=== PATIENT | male | born 1950 | race Caucasian/White ===

== ENCOUNTER → 2016-09-26 | Outpatient (CLI) | payer MEDICARE ==
[2016-09-26 08:14] LABS: EKG EKG PERFORMED
[2016-09-26 09:07] LABS: CH 32.1; CHCM 34.2; HCT 48.4 % (39.0-53.0); HDW 2.31; MCH 31.2 pg (25.0-35.0); MCV 94.5 fL (80.0-100.0); Mean Platelet Volume 7.5; RBC 5.13 m/uL (4.30-5.90); RDW 13.1 % (11.5-15.5); WBC 7.3 k/uL (3.8-10.6)
[2016-09-26 09:25] LABS: ALT 27 U/L (21-72); AST 22 U/L (17-59); Alkaline Phosphatase 83 U/L (38-126); Anion Gap 12 mmol/L; Blood Urea Nitrogen 23 mg/dL (9-20); Calcium 9.4 mg/dL (8.4-10.2); Carbon Dioxide 22 mmol/L (22-30); Chloride 107 mmol/L (98-107); Cholesterol 226 mg/dL (<200); Glucose 120 mg/dL (74-99); HDL Cholesterol 45 mg/dL (40-60); Non-African American GFR(MDRD) >60 (>60 ml/min/1.73 sqM); Potassium 4.4 mmol/L (3.5-5.1); Sodium 141 mmol/L (137-145); Total Bilirubin 0.7 mg/dL (0.2-1.3); Total Protein 7.5 g/dL (6.3-8.2); Triglycerides 162 mg/dL (<150)
[2016-09-26 09:28] LABS: Appearance,Urine Clear (Clear); Bilirubin,Urine Negative (Negative); Glucose,Urine (UA) Negative (Negative); Ketones,Urine Negative (Negative); Leukocyte Esterase,Urine Negative (Negative); Nitrite,Urine Negative (Negative); Protein,Urine Negative (Negative); Specific Gravity,Urine 1.009 (1.001-1.035); UA Billing (MACRO vs. MICRO) CHEM; Urobilinogen,Urine <2.0 mg/dL (<2.0)
--- NOTE | 2016-09-26 15:28 | XR ---
EXAMINATION TYPE: XR chest 2V DATE OF EXAM: 09/26/2016 HISTORY: Z00.00 Wellness check. REFERENCE: NONE. FINDINGS: The lungs are clear. Pleural spaces are clear. Heart size is upper limits of normal. There is evidence of hypertrophic spondylosis within the spine. IMPRESSION: BORDERLINE CARDIOMEGALY.
== END | disposition home or self-care (01) ==
LOC: LABWHC1 08:04
PROVIDERS: ATTEND Internal Medicine
DX: Z00.00 Encounter for general adult medical examination without abnormal findings (principal); I11.9 Hypertensive heart disease without heart failure; E66.1 Drug-induced obesity; N40.1 Benign prostatic hyperplasia with lower urinary tract symptoms; K21.0 Gastro-esophageal reflux disease with esophagitis
CPT/HCPCS: 36415; 71020; 80053; 80061; 81003; 82272; 84439; 84443; 85027; 93005

== ENCOUNTER → 2016-10-24 | Outpatient (CLI) | payer MEDICARE ==
[2016-10-24 11:52] LABS: Hemoglobin A1C 6.1 % (4.2-6.1)
== END | disposition home or self-care (01) ==
LOC: LABWHC1 07:27
PROVIDERS: ATTEND Internal Medicine
DX: N40.0 Benign prostatic hyperplasia without lower urinary tract symptoms (principal); R73.9 Hyperglycemia, unspecified
CPT/HCPCS: 36415; 83036; 84153

== ENCOUNTER 2017-09-05 08:24 | Inpatient (IN) | payer MEDICARE, OTHER ==
[2017-09-05] MEDS ORDERED: RX INFO: IV CONTRAST WAS GIVEN 1 EACH MISC MISCELLANE PRN (09:23)
--- NOTE | 2017-09-05 09:28 | ED ---
General Adult HPI - General Chief complaint: Abdominal Pain Stated complaint: Abd Pain Time Seen by Provider: 09/05/17 08:43 Source: patient, RN notes reviewed, old records reviewed Mode of arrival: wheelchair Limitations: no limitations - History of Present Illness Initial comments: 66-year-old male history of hypertension presents with abdominal pain which began approximately 2 hours prior to arrival. Pain began suddenly while patient was having a bowel movement. Describes the pain is from his right upper abdomen to his right groin. He does have some mild back pain.. He has nausea with no significant vomiting. No diarrhea. No rectal bleeding. Patient had only a small bowel movement with this episode. Denies chest pain or difficulty breathing. Denies fever or chills. Denies flank pain, hematuria or dysuria. - Related Data Home Medications Medication Instructions Recorded Confirmed No Known Home Medications [No 09/05/17 09/05/17 Known Home Medications] Allergies Allergy/AdvReac Type Severity Reaction Status Date / Time diphenhydramine AdvReac SUICIDAL Verified 09/05/17 09:56 [From Lio] Review of Systems ROS Statement: Those systems with pertinent positive or pertinent negative responses have been documented in the HPI. ROS Other: All systems not noted in ROS Statement are negative. Past Medical History Past Medical History: Hypertension Additional Past Medical History / Comment(s): kidney stones History of Any Multi-Drug Resistant Organisms: None Reported Past Surgical History: Appendectomy Additional Past Surgical History / Comment(s): cataract removal Past Psychological History: No Psychological Hx Reported Smoking Status: Never smoker Past Alcohol Use History: None Reported Past Drug Use History: None Reported General Exam Limitations: no limitations General appearance: alert, in distress Head exam: Present: atraumatic, normocephalic Eye exam: Present: normal appearance, PERRL ENT exam: Present: normal exam Neck exam: Present: normal inspection. Absent: tenderness, meningismus Respiratory exam: Present: normal lung sounds bilaterally. Absent: respiratory distress Cardiovascular Exam: Present: regular rate, normal rhythm GI/Abdominal exam: Present: distended, tenderness, guarding Extremities exam: Present: normal inspection, normal capillary refill, other ( Distal pulses intact) Back exam: Present: normal inspection Neurological exam: Present: alert, oriented X3, CN II-XII intact. Absent: motor sensory deficit Psychiatric exam: Present: normal affect, normal mood Skin exam: Present: warm, diaphoretic Course Vital Signs 09/05/17 09/05/17 09/05/17 08:31 10:06 11:25 Temperature 97.8 F Pulse Rate 85 83 77 Respiratory 20 22 20 Rate Blood Pressure 184/99 156/87 O2 Sat by Pulse 100 97 94 L Oximetry EKG Findings - EKG Comments: EKG Findings:: EKG: Sinus rhythm with occasional PVC, rate of 78, WV interval 172, QRS duration 78, QTC 456, no definitive signs of ischemia. Medical Decision Making - Medical Decision Making 66-year-old male presenting with abdominal pain and nausea vomiting. Patient is tender on exam throughout his abdomen. No rebound or guarding. CBC and CMP are unremarkable. Urinalysis is pending. CT is obtained, does show ventral hernia, there is slow passage of intestinal material. No definitive small bowel. Patient is unable to pass gas or have a bowel movement in the emergency department. He has ongoing pain. I believe this is likely an early small bowel obstruction or partial small bowel obstruction. He will be admitted for further monitoring, and pain control. - Lab Data Result diagrams: 09/05/17 09:05 09/05/17 09:05 Lab Results 09/05/17 09/05/17 09/05/17 Range/Units 09:05 09:05 09:05 WBC 6.3 (3.8-10.6) k/uL RBC 4.99 (4.30-5.90) m/uL Hgb 15.7 (13.0-17.5) gm/dL Hct 47.1 (39.0-53.0) % MCV 94.3 (80.0-100.0) fL MCH 31.4 (25.0-35.0) pg MCHC 33.3 (31.0-37.0) g/dL RDW 13.6 (11.5-15.5) % Plt Count 222 (150-450) k/uL Neutrophils % 63 % Lymphocytes % 26 % Monocytes % 5 % Eosinophils % 3 % Basophils % 1 % Neutrophils # 4.0 (1.3-7.7) k/uL Lymphocytes # 1.7 (1.0-4.8) k/uL Monocytes # 0.3 (0-1.0) k/uL Eosinophils # 0.2 (0-0.7) k/uL Basophils # 0.1 (0-0.2) k/uL PT (9.0-12.0) sec INR (<1.2) APTT (22.0-30.0) sec Sodium 143 (137-145) mmol/L Potassium 4.9 (3.5-5.1) mmol/L Chloride 105 (98-107) mmol/L Carbon Dioxide 25 (22-30) mmol/L Anion Gap 13 mmol/L BUN 17 (9-20) mg/dL Creatinine 0.80 (0.66-1.25) mg/dL Est GFR (CKD-EPI)AfAm >90 (>60 ml/min/1.73 sqM) Est GFR (CKD-EPI)NonAf >90 (>60 ml/min/1.73 sqM) Glucose 134 H (74-99) mg/dL Plasma Lactic Acid Royal 1.6 (0.7-2.0) mmol/L Calcium 9.5 (8.4-10.2) mg/dL Total Bilirubin 0.6 (0.2-1.3) mg/dL AST 31 (17-59) U/L ALT 28 (21-72) U/L Alkaline Phosphatase 72 (38-126) U/L Total Protein 7.4 (6.3-8.2) g/dL Albumin 4.2 (3.5-5.0) g/dL Amylase 42 (30-110) U/L Lipase 43 (23-300) U/L / Range/Units 09:05 WBC (3.8-10.6) k/uL RBC (4.30-5.90) m/uL Hgb (13.0-17.5) gm/dL Hct (39.0-53.0) % MCV (80.0-100.0) fL MCH (25.0-35.0) pg MCHC (31.0-37.0) g/dL RDW (11.5-15.5) % Plt Count (150-450) k/uL Neutrophils % % Lymphocytes % % Monocytes % % Eosinophils % % Basophils % % Neutrophils # (1.3-7.7) k/uL Lymphocytes # (1.0-4.8) k/uL Monocytes # (0-1.0) k/uL Eosinophils # (0-0.7) k/uL Basophils # (0-0.2) k/uL PT 10.0 (9.0-12.0) sec INR 1.0 (<1.2) APTT 23.6 (22.0-30.0) sec Sodium (137-145) mmol/L Potassium (3.5-5.1) mmol/L Chloride (98-107) mmol/L Carbon Dioxide (22-30) mmol/L Anion Gap mmol/L BUN (9-20) mg/dL Creatinine (0.66-1.25) mg/dL Est GFR (CKD-EPI)AfAm (>60 ml/min/1.73 sqM) Est GFR (CKD-EPI)NonAf (>60 ml/min/1.73 sqM) Glucose (74-99) mg/dL Plasma Lactic Acid Royal (0.7-2.0) mmol/L Calcium (8.4-10.2) mg/dL Total Bilirubin (0.2-1.3) mg/dL AST (17-59) U/L ALT (21-72) U/L Alkaline Phosphatase (38-126) U/L Total Protein (6.3-8.2) g/dL Albumin (3.5-5.0) g/dL Amylase (30-110) U/L Lipase (23-300) U/L Disposition Clinical Impression: Abdominal pain, Intractable abdominal pain Disposition: ADMITTED IP TO THIS [facility] Condition: Stable Is patient prescribed a controlled substance at d/c from ED?: No Referrals: None,Stated [Primary Care Provider] - 1-2 days Decision to Admit Reason: Admit from EC Decision Date: 09/05/17 Decision Time: 11:20
[2017-09-05 09:42] LABS: Basophils # (A) 0.1 k/uL (0-0.2); Basophils % (A) 1 %; Eosinophils # (A) 0.2 k/uL (0-0.7); Eosinophils % (A) 3 %; HCT 47.1 % (39.0-53.0); HGB 15.7 gm/dL (13.0-17.5); Lymphocytes # (A) 1.7 k/uL (1.0-4.8); Lymphocytes % (A) 26 %; MCH 31.4 pg (25.0-35.0); MCHC 33.3 g/dL (31.0-37.0); MCV 94.3 fL (80.0-100.0); Mean Platelet Volume 7.5; Monocytes # (A) 0.3 k/uL (0-1.0); Monocytes % (A) 5 %; Neutrophils % (A) 63 %; Platelet Count 222 k/uL (150-450); RBC 4.99 m/uL (4.30-5.90); RDW 13.6 % (11.5-15.5); WBC 6.3 k/uL (3.8-10.6)
[2017-09-05 09:50] LABS: Albumin 4.2 g/dL (3.5-5.0); Amylase 42 U/L (30-110); Anion Gap 13 mmol/L; Calcium 9.5 mg/dL (8.4-10.2); Carbon Dioxide 25 mmol/L (22-30); Chloride 105 mmol/L (98-107); Glucose 134 mg/dL (74-99); Lipase 43 U/L (23-300); Partial Thromboplastin Time 23.6 sec (22.0-30.0); Sodium 143 mmol/L (137-145); Total Bilirubin 0.6 mg/dL (0.2-1.3); Total Protein 7.4 g/dL (6.3-8.2)
[2017-09-05] MEDS ORDERED: MORPHINE SULFATE 4 MG/ML SYRINGE IVP STA ×2 (09:52→11:20)
[2017-09-05 09:53] LABS: ALT 28 U/L (21-72); AST 31 U/L (17-59); Alkaline Phosphatase 72 U/L (38-126); Blood Urea Nitrogen 17 mg/dL (9-20); Potassium 4.9 mmol/L (3.5-5.1)
--- NOTE | 2017-09-05 10:57 | CT ---
EXAMINATION TYPE: CT abdomen pelvis w con DATE OF EXAM: 09/05/2017 COMPARISON: NONE HISTORY: Generalized abdominal pain and bloating. CT DLP: 1940 mGycm, Automated Exposure Control for Dose Reduction was Utilized. CONTRAST: CT scan of the abdomen and pelvis is performed without oral but with IV Contrast, patient injected wi th 100 mL of Isovue M300. FINDINGS: LUNG BASES: There is calcified 8 mm nodule or granuloma in the posterior left lung base axial image 1 2 series 7. LIVER/GB: No significant abnormality is appreciated. PANCREAS: There is fairly moderate fat replaced atrophy at level of pancreatic head. SPLEEN: Some calcifications scattered throughout the spleen are present. Finding along with left lung basilar finding consistent with product of old granulomatous disease. ADRENALS: No significant abnormality is seen. KIDNEYS: Some cortical thinning in both kidneys is seen. There is symmetric cortical medullary uptake and excretion without evidence of hydronephrosis bilaterally. BOWEL: No suspicious small or large bowel dilatation is seen. There are some scattered diverticula in the colon most prominent in the sigmoid colon. There is no CT evidence for acute diverticulitis. T here is fairly large umbilical hernia containing fat and small mesenteric vessels as well as portion of small bowel loop. There is small bowel feces sign and lower abdominal small bowel loops suggesting delayed passage of ingested material to the colonic level. PROSTATE/SEMINAL VESICLES: No gross abnormality seen. LYMPH NODES: No greater than 1cm abdominal or pelvic lymph nodes are appreciated. OSSEOUS STRUCTURES: There is severe multilevel spurring in the thoracic and upper lumbar spine. Facet arthropathy lower lumbar levels is seen. There is moderate joint space loss in both hips. There is n arrowing and spurring at pubic symphysis. OTHER: There is moderate calcified plaque of aorta extending into branch vessels. IMPRESSION: There is ventral wall hernia containing small bowel loop. There is delayed passage of ing ested material to colonic level but no CT evidence for bowel obstruction. No ascites is seen. No sign ificant acute finding otherwise identified to account for patient's symptoms.
[2017-09-05] MEDS ORDERED: NALOXONE 0.4 MG/ML 1 ML VIAL IV PRN (11:52)
[2017-09-05] MEDS ORDERED: MORPHINE SULFATE 4 MG/ML SYRINGE IV PRN (11:52)
[2017-09-05 12:12] LABS: Appearance,Urine Clear (Clear); Bilirubin,Urine Negative (Negative); Blood,Urine Negative (Negative); Color,Urine Yellow; Glucose,Urine (UA) Negative (Negative); Ketones,Urine Negative (Negative); Leukocyte Esterase,Urine Negative (Negative); Nitrite,Urine Negative (Negative); Protein,Urine Negative (Negative); Urobilinogen,Urine <2.0 mg/dL (<2.0)
[2017-09-05 14:11] LABS: Specific Gravity,Urine >1.050 (1.001-1.035)
--- NOTE | 2017-09-05 14:28 | P.GSCN ---
History of Present Illness Consult date: 09/05/17 Reason for Consult: Abdominal pain with a Umbilical hernia History of present illness: 66-year-old presented on the day of admission to the emergency room with a chief complaint of developing a sudden onset of umbilical pain patient points to the mid umbilical region stated it radiated across to upper back. The pain occurred when he was trying to have a bowel movement states he has not had any prior episodes no change in bowel habits no blood in the bowel. Reports no nausea vomiting. Should states he normally has 3-4 bowel movements a day Denies dizziness lightheadedness no vomiting no rectal bleeding no chest pain no fever chills The CAT scan of the abdomen pelvis obtained in the emergency room with IV contrast the report reviewed showed no suspicious small or large bowel dilatation seen. No evidence of acute diverticulitis. Scattered diverticuli in the colon most prominent in the sigmoid. There is a fairly large umbilical hernia containing fat as well as a portion of the small bowel patient states the pain occurs when he is sitting upright not experience any nausea vomiting or abdominal pain with ambulation denies any esophageal reflux symptoms when questioning Abdomen is obese soft no facial grimacing with palpitation did note an umbilical hernia Patient gives no significant past medical history. States his only surgery that he has had was greater than 30 years ago an open appendectomy. States he has never had a colonoscopy Review of Systems Essentially unremarkable except as mentioned in the present illness Past Medical History Past Medical History: Hypertension Additional Past Medical History / Comment(s): Pt states he has been on hypertensive medication in the past but it did not work so he was going to be switched to another medication but this never took place, past kidney stones that pt passed on his own and some removed surgically, past R knee shattered with surgery. History of Any Multi-Drug Resistant Organisms: None Reported Past Surgical History: Appendectomy Additional Past Surgical History / Comment(s): Bilateral cataract removal with lens implants, bilateral strabismus surgery, cystoscopies for stone removals, colonoscopy many years ago, R knee shattered and surgically repaired-has hardware. Past Anesthesia/Blood Transfusion Reactions: No Reported Reaction Smoking Status: Never smoker - Past Family History Father Family Medical History: Coronary Artery Disease (CAD), Hypertension, Myocardial Infarction ([place]) Additional Family Medical History / Comment(s): Father at 74 or 76yrs of age from a [place]. Mother Family Medical History: Hypertension Additional Family Medical History / Comment(s): Mother at the age of 82 yrs from sepsis. Medications and Allergies Home Medications Medication Instructions Recorded Confirmed Type No Known Home Medications [No 09/05/17 09/05/17 History Known Home Medications] Allergies Allergy/AdvReac Type Severity Reaction Status Date / Time diphenhydramine AdvReac SUICIDAL Verified 09/05/17 09:56 [From Benadryl] Surgical - Exam Vital Signs Temp Pulse Resp BP Pulse Ox 97.8 F 85 20 184/99 100 09/05/17 08:31 09/05/17 08:31 09/05/17 08:31 09/05/17 08:31 09/05/17 08:31 GENERAL APPEARANCE: 66-year-old male patient is alert, oriented, in no acute distress. VITAL SIGNS: Reviewed HEENT: Head is normocephalic and atraumatic. Pupils are equal and reactive. The nares are patent. Oropharynx is clear without lesions. NECK: Supple without lymphadenopathy. Traches midline. HEART: S1, S2. Regular rate and rhythm. No murmur noted LUNGS: No crackles or wheezes are heard. Adequate air movement bilaterally ABDOMEN: Soft, obese to nontender, nondistended with good bowel sounds. No peritoneal signs. No palpable organomegaly or masses. Reports no nausea vomiting reports of difficulty in urinating no stool EXTREMITIES: Normal skin color and turgor. No cyanosis, rash, ulceration, clubbing or edema. Radial pedal pulses are 2/4 bilaterally. NEUROLOGICAL: No focal deficits. Strength and sensation are grossly intact. Skin skin excoriation to the inner skin folds diffuse scattered on the abdominal wall open sores. No drainage no skin rash Results - Labs 09/05/17 09:05 09/05/17 09:05 Abnormal Lab Results - Last 24 Hours (Table) 09/05/17 09/05/17 Range/Units 09:05 11:46 Glucose 134 H (74-99) mg/dL Ur Specific [place] >1.050 H (1.001-1.035) Diabetes panel 09/05/17 Range/Units 09:05 Sodium 143 (137-145) mmol/L Potassium 4.9 (3.5-5.1) mmol/L Chloride 105 (98-107) mmol/L Carbon Dioxide 25 (22-30) mmol/L BUN 17 (9-20) mg/dL Creatinine 0.80 (0.66-1.25) mg/dL Glucose 134 H (74-99) mg/dL Calcium 9.5 (8.4-10.2) mg/dL AST 31 (17-59) U/L ALT 28 (21-72) U/L Alkaline Phosphatase 72 (38-126) U/L Total Protein 7.4 (6.3-8.2) g/dL Albumin 4.2 (3.5-5.0) g/dL Calcium panel 09/05/17 Range/Units 09:05 Calcium 9.5 (8.4-10.2) mg/dL Albumin 4.2 (3.5-5.0) g/dL Pituitary panel 09/05/17 Range/Units 09:05 Sodium 143 (137-145) mmol/L Potassium 4.9 (3.5-5.1) mmol/L Chloride 105 (98-107) mmol/L Carbon Dioxide 25 (22-30) mmol/L BUN 17 (9-20) mg/dL Creatinine 0.80 (0.66-1.25) mg/dL Glucose 134 H (74-99) mg/dL Calcium 9.5 (8.4-10.2) mg/dL Adrenal panel 09/05/17 Range/Units 09:05 Sodium 143 (137-145) mmol/L Potassium 4.9 (3.5-5.1) mmol/L Chloride 105 (98-107) mmol/L Carbon Dioxide 25 (22-30) mmol/L BUN 17 (9-20) mg/dL Creatinine 0.80 (0.66-1.25) mg/dL Glucose 134 H (74-99) mg/dL Calcium 9.5 (8.4-10.2) mg/dL Total Bilirubin 0.6 (0.2-1.3) mg/dL AST 31 (17-59) U/L ALT 28 (21-72) U/L Alkaline Phosphatase 72 (38-126) U/L Total Protein 7.4 (6.3-8.2) g/dL Albumin 4.2 (3.5-5.0) g/dL Assessment and Plan Assessment: Impression Morbid obesity BMI 41 Present on admission abdominal pain with nausea vomiting suspect due to a ventral hernia with possible early small bowel obstruction CAT scan abdomen and pelvis show evidence of a large ventral hernia Plan IV fluid for hydration as ordered Start clear liquid diet Plan for outpatient follow-up to address repair the large ventral hernia DVT and GI prophylaxis No evidence of an acute surgical abdomen at this time Further surgical recommendations pending will follow with you The above impression and plan of care have been discussed and directed by signing physician. Kenyatta Kohler nurse practitioner acting as scribe for signing physician.
[2017-09-05] MEDS: SODIUM CHLORIDE 0.9% 1,000 ML IV SCH ×2 (14:57→21:10)
[2017-09-05] MEDS: HEPARIN SODIUM,PORCINE 5,000 UNIT/ML 1 ML VIAL SQ SCH ×2 (15:00→23:14)
[2017-09-05] MEDS: FAMOTIDINE 20 MG TAB PO SCH (21:09)
--- NOTE | 2017-09-05 22:03 | HP ---
HISTORY AND PHYSICAL CHIEF COMPLAINT: Abdominal pain. HISTORY OF PRESENT ILLNESS: This gentleman presented because he started to have intermittent abdominal pain. He has had this before and he has realized that it is usually due to a partial, or incomplete bowel obstruction related to a ventral hernia which is in the left upper abdomen and an umbilical hernia. He presented to the emergency room with the epigastric pain which radiated straight down into the umbilicus and down to the symphysis pubis. REVIEW OF SYSTEMS: Otherwise unremarkable. He has had no neurologic problems, heart disease, hypertension, melena, hematochezia, jaundice, renal disease, diabetes, etc. Past medical history, family history, personal and social histories are otherwise unremarkable and noncontributory. He is not on any medicine, not allergic to any. Surgically he has had a appendectomy, cataract extraction and procedure for diplopia when he was youngster. He does not smoke. PHYSICAL EXAM: Blood pressure 182/64 with a pulse of 93, respirations 29. He is afebrile. GENERAL: He appeared to be obese, in no acute distress. SKIN color is normal, skin is warm, dry. LYMPH nodes not enlarged. HEENT: Head, ears, eyes, nose, mouth and throat were normal. NECK veins not distended. Thyroid is not enlarged. CHEST is clear. CARDIAC exam is normal. ABDOMEN is soft and protuberant. He does have umbilical hernia and also paramedial left upper quadrant hernia. Bowel sounds are present. EXTREMITIES are normal. NEUROLOGICAL: Intact. IMPRESSION: Partial or incomplete small-bowel obstruction due to the left upper quadrant epigastric hernia and/or umbilical hernia. PLAN: 1. Bed rest. 2. IV fluids. 3. Clear liquids. 4. Continue to monitor abdominal findings and bowel activity. 5. Possible General surgery consult. MMODL / IJN: [id number] /
[2017-09-06 07:37] VITALS: BP 130/67; PULSE 79; RESP 18; TEMP 98.7
[2017-09-06] MEDS: HEPARIN SODIUM,PORCINE 5,000 UNIT/ML 1 ML VIAL SQ SCH (08:27)
[2017-09-06] MEDS: FAMOTIDINE 20 MG TAB PO SCH (08:27)
[2017-09-06] MEDS ORDERED: MORPHINE SULFATE 2 MG/ML SYRINGE IV PRN (08:54)
[2017-09-06] MEDS: SODIUM CHLORIDE 0.9% 1,000 ML IV SCH (09:10)
[2017-09-06] MEDS ORDERED: BISACODYL 5 MG TABLET.DR PO PRN (09:29)
[2017-09-06 09:43] LABS: Basophils # (A) 0.1 k/uL (0-0.2); Basophils % (A) 1 %; Eosinophils # (A) 0.2 k/uL (0-0.7); Eosinophils % (A) 2 %; HCT 44.8 % (39.0-53.0); HGB 14.9 gm/dL (13.0-17.5); Lymphocytes # (A) 1.7 k/uL (1.0-4.8); Lymphocytes % (A) 27 %; MCH 31.8 pg (25.0-35.0); MCHC 33.3 g/dL (31.0-37.0); MCV 95.5 fL (80.0-100.0); Mean Platelet Volume 7.3; Monocytes # (A) 0.4 k/uL (0-1.0); Monocytes % (A) 7 %; Neutrophils # (A) 3.9 k/uL (1.3-7.7); Neutrophils % (A) 61 %; Platelet Count 215 k/uL (150-450); RDW 13.6 % (11.5-15.5); WBC 6.3 k/uL (3.8-10.6)
[2017-09-06 09:59] LABS: ALT 27 U/L (21-72); AST 22 U/L (17-59); Albumin 3.7 g/dL (3.5-5.0); Alkaline Phosphatase 60 U/L (38-126); Anion Gap 10 mmol/L; Blood Urea Nitrogen 13 mg/dL (9-20); Calcium 9.1 mg/dL (8.4-10.2); Carbon Dioxide 29 mmol/L (22-30); Chloride 103 mmol/L (98-107); Glucose 99 mg/dL (74-99); Potassium 4.4 mmol/L (3.5-5.1); Sodium 142 mmol/L (137-145); Total Bilirubin 0.5 mg/dL (0.2-1.3); Total Protein 6.5 g/dL (6.3-8.2)
--- NOTE | 2017-09-06 12:07 | P.PN ---
Subjective Progress Note Date: 09/06/17 66-year-old male seen and examined at bedside this morning states has been up ambulating passing gas and had 1 small stool this morning reports no nausea no vomiting. Patient reports he is anxious to be discharged home will follow-up in the outpatient setting reports the abdominal pain has resolved tolerating diet no nausea no vomiting Patient was being seen by surgical service for umbilical hernia with a ventral hernia left upper quadrant of the abdomen with a CAT scan abdomen and pelvis suggestive of a bowel obstruction no ascites. The ventral wall hernia containing some small bowel loops Objective - Vital Signs Vital signs: Vital Signs Temp 98.7 F 09/06/17 07:00 Pulse 79 09/06/17 09:45 Resp 18 09/06/17 09:45 BP 130/67 09/06/17 07:00 Pulse Ox 94 L 09/06/17 07:00 Intake & Output 09/05/17 09/06/17 09/06/17 18:59 06:59 18:59 Intake Total 748 400 Output Total 200 Balance 548 400 Weight 131.542 kg 131.542 kg Intake: Oral 748 400 Output: Urine 200 Other: Voiding Method Toilet Toilet Toilet # Voids 1 2 # Bowel Movements 0 - Exam Physical exam 66-year-old male sitting up in bed talkative appears in no acute distress states abdominal pain is gone Lungs adequate air movement bilaterally on room air no shortness of breath Heart S1-S2 audible and regular denying chest pain Abdomen obese soft nontender umbilical hernia noted passing gas states had one bowel movement this morning bowel tones present no nausea no vomiting tolerating diet Extremities no edema noted - Labs CBC & Chem 7: 09/06/17 09:15 09/06/17 09:15 Labs: Abnormal Lab Results - Last 24 Hours (Table) 09/05/17 Range/Units 11:46 Ur Specific [place] >1.050 H (1.001-1.035) Assessment and Plan Assessment: Impression Morbid obesity BMI 41 Present on admission abdominal pain with nausea vomiting suspect due to a ventral hernia with possible early small bowel obstruction resolved CAT scan abdomen and pelvis show evidence of a large ventral hernia Plan From a surgical perspective patient is felt to be appropriate to proceed with a discharge defer to the timing to the attending Advance diet as tolerated Plan for outpatient follow-up to address repair the large ventral hernia DVT and GI prophylaxis The above impression and plan of care have been discussed and directed by signing physician. Kenyatta Kohler nurse practitioner acting as scribe for signing physician.
--- NOTE | 2017-09-06 20:43 | DS ---
DISCHARGE SUMMARY CHIEF COMPLAINT: Abdominal pain and partial bowel obstruction. HISTORY OF PRESENT ILLNESS AND PHYSICAL EXAM: Details of this man's history and physical can be found in the initial workup. COURSE IN THE HOSPITAL: While he was in the hospital, he had laboratory studies, details which can be found in the laboratory section of his chart. COURSE IN HOSPITAL: After admission, he was placed on bedrest. By the following morning, the hernias had decompressed and he was passing gas, eating and he had a small bowel movement. It was felt he could go home on his usual diet and activity and he will be seen in the office in followup. FINAL DIAGNOSES: 1. Partial small-bowel obstruction. 2. Large left epigastric hernia. 3. Umbilical hernia. OPERATIONS: None. CONSULTATION: He is improved. BARRERA / MALIK: [id number] /
== END 2017-09-06 14:28 | disposition home or self-care (01) | DRG 394 ==
LOC: EC 08:24 → 4MS4W 11:54
PROVIDERS: ADMIT Family Medicine; ATTEND Family Medicine
DX: K43.6 Other and unspecified ventral hernia with obstruction, without gangrene (principal); Z68.41 Body mass index [BMI] 40.0-44.9, adult; K42.0 Umbilical hernia with obstruction, without gangrene; E66.01 Morbid (severe) obesity due to excess calories; I10 Essential (primary) hypertension; Z98.41 Cataract extraction status, right eye; Z98.42 Cataract extraction status, left eye; Z96.1 Presence of intraocular lens; Z88.8 Allergy status to other drugs, medicaments and biological substances; Z87.442 Personal history of urinary calculi; Z90.49 Acquired absence of other specified parts of digestive tract; Z82.49 Family history of ischemic heart disease and other diseases of the circulatory system
CPT/HCPCS: 36415; 74177; 80053; 81003; 82150; 83605; 83690; 85025; 85610; 85730; 93005; 96374; 96376; 99285

== ENCOUNTER 2017-09-11 07:41 | Day surgery (SDC) | payer MEDICARE, OTHER ==
[2017-09-07 12:47] VITALS: BMI 42.9
[~2017-09-11 07:41] MED LIST: DEXAMETHASONE SOD PHOSPHATE 10 MG/ML 1 ML VIAL IV ONE; HEPARIN SODIUM,PORCINE 5,000 UNIT/ML 1 ML VIAL SQ ONE; LACTATED RINGERS 1,000 ML IV SCH; SCOPOLAMINE 1.5MG/72HR PATCH TRANSDERM ONE
[2017-09-11] MEDS ORDERED: LIDOCAINE 1% 20 ML VIAL (10MG/ML) FOR IV START INTRADERMA ONE (08:54)
[2017-09-11] MEDS ORDERED: DEXAMETHASONE SOD PHOSPHATE 10 MG/ML 1 ML VIAL IV ONE (09:07)
--- NOTE | 2017-09-11 09:08 | P.GSHP ---
History of Present Illness H&P Date: 09/11/17 Chief Complaint: Incarcerated umbilical hernia This a 66-year-old male who's had issues with incarcerated umbilical hernia. Patient's had complaints of pain and mass at his umbilicus. He presents today for laparoscopic robotic-assisted repair. Past Medical History Past Medical History: Eye Disorder, Hypertension, Musculoskeletal Disorder Additional Past Medical History / Comment(s): BORDERLINE HTN, ON HTN RX IN PAST , MADE HIM DIZZY. Past kidney stones. Past RT knee shattered with surgery; LT KNEE PROB ALSO.. HX CATARACTS. History of Any Multi-Drug Resistant Organisms: None Reported Past Surgical History: Appendectomy, Orthopedic Surgery Additional Past Surgical History / Comment(s): Bilateral cataract removal with lens implants, bilateral strabismus surgery, cystoscopies for stone removals, colonoscopy many years ago, R knee shattered and surgically repaired-has hardware. Past Anesthesia/Blood Transfusion Reactions: No Reported Reaction Smoking Status: Never smoker - Past Family History Father Family Medical History: Coronary Artery Disease (CAD), Hypertension, Myocardial Infarction ([place]) Additional Family Medical History / Comment(s): Father at 74 or 76yrs of age from a [place]. Mother Family Medical History: Hypertension Additional Family Medical History / Comment(s): Mother at the age of 82 yrs from sepsis. Medications and Allergies Home Medications Medication Instructions Recorded Confirmed Type Aspirin 325 mg PO DAILY PRN 09/07/17 09/11/17 History Naproxen Sodium [Aleve] 220 mg PO BID PRN 09/07/17 09/11/17 History Allergies Allergy/AdvReac Type Severity Reaction Status Date / Time diphenhydramine AdvReac SUICIDAL Verified 09/11/17 08:36 [From Benadryl] Surgical - Exam Vital Signs Temp Pulse Resp BP Pulse Ox 98.8 F 94 20 144/82 94 L 09/11/17 08:29 09/11/17 08:29 09/11/17 08:29 09/11/17 08:29 09/11/17 08:29 - General well developed, no distress - Eyes PERRL - ENT normal pinna - Neck no masses - Respiratory normal expansion - Cardiovascular Rhythm: regular - Abdomen Abdomen: soft, non tender Hernia: umbilical (5 cm incarcerated umbilical hernia) Assessment and Plan Assessment: Incarcerated umbilical hernia. We'll perform laparoscopic robotic-assisted repair
[2017-09-11] MEDS ORDERED: PHENYLEPHRINE-0.9% NACL SYG 1 MG/10 ML SYRINGE ONE (10:08)
[2017-09-11] MEDS ORDERED: NEOSTIGMINE 1 MG/ML 10 ML VIAL ONE (10:08)
[2017-09-11] MEDS ORDERED: fentaNYL (PF) 50 MCG/ML 2 ML AMP ONE (10:08)
[2017-09-11] MEDS ORDERED: PROPOFOL 10 MG/ML 20 ML VIAL IV ONE (10:08)
[2017-09-11] MEDS ORDERED: LIDOCAINE 1% INJ 10MG/ML (20 ML MDV) ONE (10:08)
[2017-09-11] MEDS ORDERED: MIDAZOLAM 2 MG/2 ML VIAL ONE (10:08)
[2017-09-11] MEDS ORDERED: ROCURONIUM BROMIDE 10 MG/ML 10 ML VIAL IV ONE (10:08)
[2017-09-11] MEDS ORDERED: GLYCOPYRROLATE 0.2 MG/ML 2 ML VIAL ONE (10:08)
[2017-09-11] MEDS ORDERED: SUCCINYLCHOLINE CHLORIDE VIAL 200 MG/10 ML VIAL IV ONE (10:08)
[2017-09-11] MEDS ORDERED: BUPIVACAINE (PF) 0.5% 30 ML VIAL SQ ONE (10:41)
[2017-09-11] MEDS ORDERED: LACTATED RINGERS 1,000 ML IV ONE ×2 (11:03)
--- NOTE | 2017-09-11 11:11 | P.OP ---
Date of Procedure: 09/11/17 Preoperative Diagnosis: Incarcerated umbilical hernia Postoperative Diagnosis: Incarcerated umbilical hernia Procedure(s) Performed: Laparoscopic robotic-assisted repair of incarcerated umbilical hernia Anesthesia: JAXON Surgeon: Kee Heaton Estimated Blood Loss (ml): 10 Pathology: other (Incarcerated omentum and sac) Condition: stable Disposition: PACU Description of Procedure: The patient was placed on the operating table in the supine position. He received general anesthesia. His abdomen was prepped and draped usual fashion. Using a 5 mm optical trocar under direct visualization the peritoneal cavity was entered in the left upper quadrant. The abdomen was then insufflated. The laparoscope was placed back into the perineal cavity. Next a 8 mm robotic trocar was placed in the left lower quadrant and a 12 mm robotic trocar was placed in the left lateral position. The original 5 mm trocar was exchanged for a 8 mm robotic trocar. The patient's placed in the left side up position. And the patient was undocked the robot. The umbilical hernia was visualized. Using hook cautery the peritoneum over the umbilical hernia was excised. The incarcerated omentum and sac were dissected free from the abdominal wall. The fascial opening was repaired using 0V LOC suture. Next a piece of 11 cm round ventral light ST mesh was placed into the. Cavity and secured with 2 OV lock suture. The patient was undocked the robot. The needles were retrieved. The omentum and sac retrieved. The fascia of the 12 mm trocar site was closed with 0 Ethibond suture. Skin was closed interrupted 3-0 Monocryl suture. Dermabond dressings was applied. Patient top procedure well and was sent to recovery room stable condition.
[2017-09-11 11:35] VITALS: TEMP 97
[2017-09-11] MEDS ORDERED: ONDANSETRON 4 MG/2 ML VIAL IVP ONE (11:35)
[2017-09-11] MEDS: MORPHINE SULFATE 2 MG/ML SYRINGE IV PRN ×5 (11:45→12:20)
[2017-09-11] MEDS ORDERED: METOCLOPRAMIDE 5 MG/ML 2 ML VIAL IVP ONE (11:51)
[2017-09-11] MEDS: fentaNYL (PF) 50 MCG/ML 2 ML AMP IV PRN ×2 (12:07→12:12)
[2017-09-11] MEDS ORDERED: HYDROcodone/APAP 7.5-325MG 1 EACH TAB PO ONE (12:59)
[2017-09-11 15:18] VITALS: BP 131/68; PULSE 91; RESP 18
== END 2017-09-11 15:05 | disposition home or self-care (01) ==
LOC: OR 07:41
PROVIDERS: ATTEND Surgery
DX: K42.0 Umbilical hernia with obstruction, without gangrene (principal); F31.9 Bipolar disorder, unspecified; I10 Essential (primary) hypertension; Z79.82 Long term (current) use of aspirin; Z88.8 Allergy status to other drugs, medicaments and biological substances
CPT/HCPCS: 88305; 49653; C1781; J2250; J0330; J1644; J1100; J2710; J2765; J0690; J2405; J2001; J3010; J2270; J2370; J2704

== ENCOUNTER → 2017-10-03 | Outpatient (CLI) | payer MEDICARE, OTHER ==
--- NOTE | 2017-10-04 10:40 | ECHOF ---
Referral Reason:R06.00 Dyspnea MEASUREMENTS -------- HEIGHT: 180.3 cm WEIGHT: 140.6 kg BP: 146/73 RVIDd: 3.8 cm (< 3.3) IVSd: 1.6 cm (0.6 - 1.1) LVIDd: 3.9 cm (3.9 - 5.3) LVPWd: 1.4 cm (0.6 - 1.1) IVSs: 1.9 cm LVIDs: 2.8 cm LVPWs: 1.5 cm LA Diam: 3.6 cm (2.7 - 3.8) LAESV Index (A-L): 31.76 ml/m Ao Diam: 3.5 cm (2.0 - 3.7) AV Cusp: 2.1 cm (1.5 - 2.6) MV EXCURSION: 15.618 mm (> 18.000) MV EF SLOPE: 51 mm/s (70 - 150) EPSS: 0.9 cm MV E Higinio: 0.72 m/s MV DecT: 208 ms MV A Higinio: 0.79 m/s MV E/A Ratio: 0.91 FINDINGS -------- Sinus rhythm. This was a technically difficult study with suboptimal views. The left ventricular size is normal. There is moderate concentric left ventricular hypertrophy. O verall left ventricular systolic function is normal with, an EF between 55 - 60 %. The right ventricle is mild to moderately enlarged. LA is midly dilated 29-33ml/m2. The right atrium is normal in size. Lumason used There is mild aortic valve sclerosis. Mild mitral annular calcification present. The tricuspid valve appears structurally normal. There is no pulmonic regurgitation present. The aortic root size is normal. IVC Not well visulized. There is no pericardial effusion. CONCLUSIONS -------- 1. Sinus rhythm. 2. This was a technically difficult study with suboptimal views. 3. The left ventricular size is normal. 4. There is moderate concentric left ventricular hypertrophy. 5. Overall left ventricular systolic function is normal with, an EF between 55 - 60 %. 6. The right ventricle is mild to moderately enlarged. 7. LA is midly dilated 29-33ml/m2. 8. The right atrium is normal in size. 9. Lumason used 10. There is mild aortic valve sclerosis. 11. Mild mitral annular calcification present. 12. The tricuspid valve appears structurally normal. 13. There is no pulmonic regurgitation present. 14. The aortic root size is normal. 15. IVC Not well visulized. 16. There is no pericardial effusion. SUPERVISOR PLEATING: Deepika Unger RDCS
== END | disposition home or self-care (01) ==
LOC: RADECHMAIN 15:50
PROVIDERS: ATTEND Family Medicine
DX: R06.00 Dyspnea, unspecified (principal)
CPT/HCPCS: C8929; Q9950; 93306

== ENCOUNTER → 2018-06-26 | Outpatient (CLI) | payer MEDICARE, OTHER ==
--- NOTE | 2018-06-26 13:55 | US ---
EXAMINATION TYPE: US venous doppler duplex LE RT DATE OF EXAM: 06/26/2018 12:57 PM COMPARISON: NONE CLINICAL HISTORY: I87.2 Venous insufficiency (chronic) (peripheral). SIDE PERFORMED: Right TECHNIQUE: The lower extremity deep venous system is examined utilizing real time linear array sonog peewee with graded compression, doppler sonography and color-flow sonography. VESSELS IMAGED: External Iliac Vein (EIV) Common Femoral Vein Deep Femoral Vein Greater Saphenous Vein * Femoral Vein Popliteal Vein Small Saphenous Vein * Proximal Calf Veins (* superficial vessels) Grayscale, color doppler, spectral doppler imaging performed of the deep veins of the right lower ext remity. There is normal flow, compressibility, vascular waveforms. Right Leg: Negative for DVT IMPRESSION: No sonographic evidence of deep venous thrombosis within the right lower extremity.
== END | disposition home or self-care (01) ==
LOC: RADUSWWP 12:51
PROVIDERS: ATTEND Family Medicine
DX: I87.2 Venous insufficiency (chronic) (peripheral) (principal); R60.9 Edema, unspecified; R79.1 Abnormal coagulation profile

== ENCOUNTER 2019-03-28 06:52 | Day surgery (SDC) | payer MEDICARE, OTHER ==
[2019-03-26 08:37] VITALS: BMI 38.7
[~2019-03-28 06:52] MED LIST changes: -DEXAMETHASONE SOD PHOSPHATE 10 MG/ML 1 ML VIAL IV ONE; -HEPARIN SODIUM,PORCINE 5,000 UNIT/ML 1 ML VIAL SQ ONE; +LIDOCAINE 1% 20 ML VIAL (10MG/ML) FOR IV START INTRADERMA PRN; -SCOPOLAMINE 1.5MG/72HR PATCH TRANSDERM ONE
[2019-03-28 07:19] VITALS: TEMP 96.8
[2019-03-28 07:22] LABS: Glucose,Whole Blood 106 mg/dL (75-99)
[2019-03-28] MEDS ORDERED: PROPOFOL 10 MG/ML 20 ML VIAL IV ONE (07:25)
--- NOTE | 2019-03-28 08:21 | P.PCN ---
Date of Procedure: 03/28/19 Description of Procedure: Brief history: Patient is a pleasant scheduled for an elective upper endoscopy as well as colonoscopy as a part of evaluation of melena, blood per rectum and GI bleed. He reports intermittent episodes of dark black bowel movements and blood per rectum occurring over the past few weeks. No prior history of endoscopy. Denies any NSAID use. No family history of colon cancer. Procedure performed: Esophagogastroduodenoscopy with biopsy Colonoscopy with polypectomy Estimated blood loss: Minimal. Preoperative diagnosis: Melena, blood per rectum, no prior colonoscopies Anest[place]: [facility] [place] Procedure: After informed consent was obtained from the patient was brought into the endoscopy unit and IV sedation was administered by anesthesia under continuous monitoring. Initially upper endoscopy was done. The Olympus GF 190 video endoscope was inserted into the mouth and esophagus intubated without any difficulty and was gradually advanced into the stomach and duodenum and carefully examined. The bulb and second part of the duodenum appeared normal, w ith biopsies taken to rule out. The scope was then withdrawn into the stomach adequately insufflated with air and upon careful examination the antrum and body, cardia and fundus appeared normal, with mild scattered erythema in the antrum body noted and biopsies taken. The scope was then withdrawn into the esophagus. The GE junction was located at 43 cm to the incisors. It appeared regular with no erythema erosions or ulcerations. Rest of the esophagus appeared normal. Patient tolerated the procedure well. At this time the patient continued to remain sedation. Initial digital rectal examination was normal. Olympus CF 190 video colonoscope was then inserted into the rectum and gradually advanced to the cecum without any difficulty. Careful examination was performed as the scope was gradually being withdrawn. The prep was excellent. The cecum, ascending colon, transverse colon, descending colon, sigmoid colon and rectum appeared normal. The terminal ileum was located. Normal. Diminutive 2 mm cecal polyp removed with cold forcep polypectomy. Flat 1.5 cm ascending colon polyp just distal to the ileocecal valve in the ascending colon removed with hot snare polypectomy in piecemeal fashion with 2 Endo clips placed for hemostasis. Diminutive 2 mm descending colon polyp removed with cold forcep polypectomy. 5 mm sigmoid colon polyp removed with cold snare polypectomy. 7 mm rectal polyp removed with cold snare polypectomy. Multiple left colonic diverticula noted. Retroflexion was performed in the rectum and no lesions were noted, moderate internal hemorrhoids noted. Patient tolerated the procedure well. Impression: 1. Mild gastritis of antrum and body, biopsied. Duodenal biopsies. 2. 5 colonic polyps removed, including one ascending colon polyp removed in piecemeal fashion (please see body of report for size, location and technique of polypectomy). Mild left colonic diverticulosis. Moderate internal hemorrhoids. Recommendations: Findings of this examination were discussed with the patient as well as His sister. Okay to resume diet. Okay to resume medications. Await pathology from polypectomies. Would recommend repeat colonoscopy in 6 months given piecemeal resection of polyp in the ascending colon.
[2019-03-28 08:23] VITALS: RESP 16
[2019-03-28 08:40] VITALS: BP 129/67; PULSE 92
== END 2019-03-28 08:52 | disposition home or self-care (01) ==
LOC: ORWHC2ENDO 06:52
PROVIDERS: ATTEND Internal Medicine
DX: D12.2 Benign neoplasm of ascending colon (principal); D12.8 Benign neoplasm of rectum; K63.5 Polyp of colon; K29.50 Unspecified chronic gastritis without bleeding; K57.30 Diverticulosis of large intestine without perforation or abscess without bleeding; K64.8 Other hemorrhoids; Z98.42 Cataract extraction status, left eye; Z98.41 Cataract extraction status, right eye; I10 Essential (primary) hypertension; E78.5 Hyperlipidemia, unspecified; E11.9 Type 2 diabetes mellitus without complications; Z87.442 Personal history of urinary calculi; E66.9 Obesity, unspecified; Z68.38 Body mass index [BMI] 38.0-38.9, adult; Z97.2 Presence of dental prosthetic device (complete) (partial); Z79.84 Long term (current) use of oral hypoglycemic drugs; Z88.8 Allergy status to other drugs, medicaments and biological substances
CPT/HCPCS: 88305; 45380; 45385; 43239; J2704; 45382

== ENCOUNTER → 2019-05-03 | Outpatient (CLI) | payer MEDICARE, OTHER ==
[2019-05-03 11:52] LABS: Appearance,Urine Turbid (Clear); Bacteria,Urine Many /hpf; Bilirubin,Urine Negative (Negative); Blood,Urine Moderate (Negative); Color,Urine Yellow; Glucose,Urine (UA) Negative (Negative); Ketones,Urine Trace (Negative); Leukocyte Esterase,Urine Large (Negative); Mucus,Urine Many /hpf; Nitrite,Urine Negative (Negative); Protein,Urine 2+ (Negative); RBC,Urine >182 /hpf (0-5); Squamous Epithelial Cell,Urine 3 /hpf (0-4); Urobilinogen,Urine <2.0 mg/dL (<2.0); WBC,Urine >182 /hpf (0-5)
--- NOTE | 2019-05-03 13:10 | CT ---
EXAMINATION TYPE: CT abdomen pelvis wo con DATE OF EXAM: 05/03/2019 COMPARISON: 09/05/2017 INDICATION: LLQ pain, decrease in urine output DLP: 1498.4 mGycm, Automated exposure control for dose reduction was used. CONTRAST: 0 mL of Isovue 300. Study performed with Oral Contrast TECHNIQUE: Axial images were obtained from above the diaphragm to the pubic rami in the axial plane a t 5 mm thick sections. Reconstructed images are reviewed on the computer in the coronal plane. FINDINGS: Limited CT sections are obtained the lung bases. There is a small calcification the posterior medial left lung base. Mild coronary artery calcification is within the [id number].. CT ABDOMEN: Liver: There may be a calcification along the hepatic border of the posterior superior left lobe live r. Spleen: Multiple calcified granuloma are within the spleen. Pancreas: Normal Adrenal glands: The adrenal glands are normal. Gallbladder: Normal Kidneys: No masses are evident. No hydronephrosis is present. No cysts are present. No renal stone s are evident. Aorta: Vascular calcification is within the aorta. Inferior vena cava: Normal. CT PELVIS: Previous anterior abdominal wall hernia has been reduced. No residual hernia is evident. Loops of bowel within the abdomen and pelvis are normal. There are loops of bowel which are incom pletely distended or lack oral contrast limiting their evaluation. A few scattered diverticuli withou t acute diverticulitis are present. Appendix: Not identified. No suspicious inflammatory changes. Urinary bladder: Urinary bladder may has some thickening of the wall. Urinary bladder diverticulum is in the left posterior lateral urinary bladder. A superior urinary bladder diverticulum may also be p resent. Genitourinary structures: Prostate is moderately prominent. Osseous structures: No suspicious lytic or sclerotic lesions. IMPRESSIONS: 1. Mild thickening of the urinary bladder wall can be related to outlet limitation. There is moderat e prominence of the prostate. Urinary bladder diverticulum are discussed above.
== END | disposition home or self-care (01) ==
LOC: RADCTMAIN 10:52
PROVIDERS: ATTEND Nurse Practitioner Adult Health
DX: R10.32 Left lower quadrant pain (principal); K57.92 Diverticulitis of intestine, part unspecified, without perforation or abscess without bleeding; K92.1 Melena
CPT/HCPCS: 36415; 74176; 80053; 81001; 84153; 85025; 87077; 87086; 87186

== ENCOUNTER → 2019-09-09 | Outpatient (CLI) | payer MEDICARE, OTHER | END | disposition home or self-care (01) | LOC: LABWHC1 10:54 | PROVIDERS: ATTEND Internal Medicine | DX: Z11.59 Encounter for screening for other viral diseases (principal) ==

== ENCOUNTER 2019-09-12 08:06 | Day surgery (SDC) | payer MEDICARE, OTHER ==
[2019-09-11 08:23] VITALS: BMI 39.0
[~2019-09-12 08:06] MED LIST changes: -LIDOCAINE 1% 20 ML VIAL (10MG/ML) FOR IV START INTRADERMA PRN
[2019-09-12 08:37] VITALS: TEMP 97.4
[2019-09-12 08:37] LABS: Glucose,Whole Blood 115 mg/dL (75-99)
[2019-09-12] MEDS ORDERED: PROPOFOL 10 MG/ML 20 ML VIAL IV ONE (08:48)
--- NOTE | 2019-09-12 09:22 | P.PCN ---
Date of Procedure: 09/12/19 Description of Procedure: BRIEF HISTORY: Patient is a pleasant 68-year-old male presenting for outpatient colonoscopy for history of colon polyps and rectal bleed. Last colonoscopy with piecemeal resection of a colon polyp on 03/28/2019. Patient was noted to have hemorrhoids and and still sees intermittent blood per rectum. PROCEDURE PERFORMED: Colonoscopy with polypectomy and biopsy. PREOPERATIVE DIAGNOSIS: History of colon polyps, rectal bleed, last colonoscopy 03/2019 with piecemeal r esection of a polyp ESTIMATED BLOOD LOSS: Minimal. IV sedation per Anesthesia. PROCEDURE: After informed consent was obtained, the patient, was brought into the endoscopy unit. IV sedation was administered by Anesthesia under continuous monitoring. Digital rectal examination was normal. Initially the Olympus CF-190 flexible video colonoscope was then inserted in the rectum, gradually advanced into the cecum without any difficulty. Careful examination was performed as the scope was gradually being withdrawn. Ileocecal valve and the appendiceal orifice were visualized and appeared normal. Prep was excellent. Mucosa of the cecum, ascending colon, transverse colon, descending colon, sigmoid colon, and rectum appeared normal. biopsies were taken on the ileocecal valve in the area where review of piecemeal resection of flat polyp was performed. 2 diminutive rectal polyps removed with cold forcep polypectomy measuring 2 mm in size each. Multiple diverticula noted in the left colon. Retroflexion was performed in the rectum and no lesions were seen, Moderate internal hemorrhoids. The patient tolerated the procedure well. IMPRESSION: 2 diminutive rectal polyps removed with cold forceps. Biopsies of the ileocecal valve and the area of prior piecemeal resection of a large polyp. Moderate internal hemorrhoids. Mild left colonic diverticulosis. RECOMMENDATIONS: Findings of this examination were discussed with the patient.. Okay to resume high-fiber diet. Okay to resume medications. Local hemorrhoidal care when patient sees intermittent bleeding/streaking of blood in stool. Would recommend repeat colonoscopy in 3 years
[2019-09-12 09:23] VITALS: RESP 17
[2019-09-12 09:37] VITALS: BP 128/84; PULSE 64
== END 2019-09-12 09:57 | disposition home or self-care (01) ==
LOC: ORWHC2ENDO 08:06
PROVIDERS: ATTEND Internal Medicine
DX: K63.5 Polyp of colon (principal); K62.1 Rectal polyp; K57.30 Diverticulosis of large intestine without perforation or abscess without bleeding; K64.8 Other hemorrhoids; I10 Essential (primary) hypertension; E78.5 Hyperlipidemia, unspecified; E11.9 Type 2 diabetes mellitus without complications; F31.9 Bipolar disorder, unspecified; E66.01 Morbid (severe) obesity due to excess calories; Z88.8 Allergy status to other drugs, medicaments and biological substances; Z79.84 Long term (current) use of oral hypoglycemic drugs; Z79.899 Other long term (current) drug therapy; Z86.010 Personal history of colon polyps; Z90.49 Acquired absence of other specified parts of digestive tract; Z98.41 Cataract extraction status, right eye; Z98.42 Cataract extraction status, left eye; Z98.890 Other specified postprocedural states; Z68.39 Body mass index [BMI] 39.0-39.9, adult
CPT/HCPCS: 88305; 45380; J2704

== ENCOUNTER → 2020-07-28 | Outpatient (CLI) | payer MEDICARE, OTHER ==
--- NOTE | 2020-07-28 08:49 | US ---
EXAMINATION TYPE: US abdomen complete DATE OF EXAM: 07/28/2020 COMPARISON: NONE CLINICAL HISTORY: 69-year-old male R10.11 right Upper Quadrant pain. TECHNIQUE: Multiple sonographic images of the abdomen are obtained. FINDINGS: EXAM MEASUREMENTS: Liver Length: 11.5 cm Gallbladder Wall: 0.2 cm CBD: 0.5 cm Spleen: unable to measure, limited views Right Kidney: 13.2 x 5.2 x 5.5 cm Left Kidney: 14.2 x 5.6 x 5.5 cm Buying Intern notes: Morbidly obese patient carrying most of his weight in his abdomen. Technically di fficult, limited study. Pancreas: Obscured by bowel gas Liver: limited views. No focal lesion along the visualized portions. Gallbladder: Borderline distended at 10.0 x 3.8 cm. No wall thickening, surrounding fluid, or shadow ing calculi. Evidence for sonographic Borges's sign: no CBD: wnl Spleen: very limited views, not seen in its entirety Kidneys: Slightly large probably due to body habitus. No hydronephrosis. Upper IVC: wnl Abd Aorta: Mostly obscured by overlying bowel gas IMPRESSION: 1. Technically limited exam due to patient size. Multiple structures were not entirely visualized. 2. No gallstones or biliary ductal dilatation.
== END | disposition home or self-care (01) ==
LOC: RADUSWWP 07:49
PROVIDERS: ATTEND Family Medicine
DX: R10.11 Right upper quadrant pain (principal)
CPT/HCPCS: 76700

== ENCOUNTER 2020-08-10 17:19 | Observation (INO) | payer MEDICARE, OTHER ==
[2020-08-10] MEDS ORDERED: SODIUM CHLORIDE 0.9% 500 ML 500 ML IV STA (17:46)
[2020-08-10] MEDS ORDERED: IBUPROFEN 600 MG TAB PO STA (17:47)
[2020-08-10] MEDS ORDERED: ACETAMINOPHEN TAB 500 MG TAB PO STA (17:47)
--- NOTE | 2020-08-10 17:51 | ED ---
General Adult HPI - General Chief complaint: Chest Pain Stated complaint: sob c/p Time Seen by Provider: 08/10/20 17:25 Source: patient, RN notes reviewed, old records reviewed Mode of arrival: wheelchair Limitations: no limitations - History of Present Illness Initial comments: This is a 69-year-old male who states that he has been having difficulty br eathing over the last 3 days of some intermittent chest pain particularly at night that lasted about half an hour to time and goes away. Patient states is very sweaty and that only started this afternoon. Patient states went to his primary medical care doctor a few days ago and he was told that he had EKG changes indicative of a heart attack but the patient states he's never had one. Patient states he is unable to get in to see cardiology so he came to the emergency department today. Patient states she's had both vaccinations for Conner the last of which was at the beginning of July. Patient denies any recent fever chills or cough. Patient denies any abdominal pain patient denies any nausea vomiting. Patient does complain of losing his sense of taste. Patient denies any swelling to legs or calf tenderness. - Related Data Home Medications Medication Instructions Recorded Confirmed metFORMIN HCL [Glucophage] 500 mg PO DAILY 03/26/19 08/10/20 Tamsulosin HCl [Flomax] 0.4 mg PO DAILY 09/11/19 08/10/20 Acetaminophen Tab [Tylenol] 650 mg PO Q4H PRN 08/10/20 08/10/20 Aspirin EC [Ecotrin Low Dose] 81 mg PO DAILY 08/10/20 08/10/20 Allergies Allergy/AdvReac Type Severity Reaction Status Date / Time diphenhydramine AdvReac SUICIDAL Verified 08/10/20 18:45 [From Benadryl] Review of Systems ROS Statement: Those systems with pertinent positive or pertinent negative responses have been documented in the HPI. ROS Other: All systems not noted in ROS Statement are negative. Past Medical History Past Medical History: Diabetes Mellitus, Eye Disorder, Hyperlipidemia, Hypertension Additional Past Medical History / Comment(s): BORDERLINE HTN, borderline hyperlipidema, borderline Diabetes. Hx kidney stones. BLOOD IN STOOL History of Any Multi-Drug Resistant Organisms: None Reported Past Surgical History: Appendectomy, Orthopedic Surgery Additional Past Surgical History / Comment(s): Bilateral cataract removal with lens implants, bilateral strabismus surgery, cystoscopies for stone removals, R knee shattered and surgically repaired-has hardware. COLONOSCOPY Past Anesthesia/Blood Transfusion Reactions: No Reported Reaction Past Psychological History: Bipolar, Depression Past Alcohol Use History: None Reported Past Drug Use History: None Reported - Past Family History Father Family Medical History: Coronary Artery Disease (CAD), Hypertension, Myocardial Infarction (AK) Additional Family Medical History / Comment(s): Father at 74 or 76yrs of age from a AK. Mother Family Medical History: Hypertension Additional Family Medical History / Comment(s): Mother at the age of 82 yrs from sepsis. General Exam - General Exam Comments Initial Comments: GENERAL: Patient is well-developed and well-nourished. Patient is nontoxic and well- hydrated and is in mild distress. Patient feels warm he is diaphoretic. ENT: Neck is soft and supple. No significant lymphadenopathy is noted. Oropharynx is clear. Moist mucous membranes. Neck has full range of motion without eliciting any pain. EYES: The sclera were anicteric and conjunctiva were pink and moist. Extraocular mov ements were intact and pupils were equal round and reactive to light. Eyelids were unremarkable. PULMONARY: Unlabored respirations. Good breath sounds bilaterally. No audible rales rhonchi or wheezing was noted. CARDIOVASCULAR: There is a regular rate and rhythm without any murmurs gallops or rubs. The heart rate at about 125 beats a minute. ABDOMEN: Soft and nontender with normal bowel sounds. SKIN: Skin is clear with no lesions or rashes and otherwise unremarkable. NEUROLOGIC: Patient is alert and oriented x3. Cranial nerves II through XII are grossly intact. Motor and sensory are also intact. Normal speech, volume and content. Symmetrical smile. MUSCULOSKELETAL: Normal extremities with adequate strength and full range of motion. No lower extremity swelling or edema. No calf tenderness. LYMPHATICS: No significant lymphadenopathy is noted PSYCHIATRIC: Normal psychiatric evaluation. Limitations: no limitations Course Vital Signs 08/10/20 08/10/20 17:24 19:54 Temperature 99.6 F Pulse Rate 136 H 98 Respiratory 22 20 Rate Blood Pressure 148/71 139/78 O2 Sat by Pulse 94 L 98 Oximetry Medical Decision Making - Medical Decision Making EKG shows sinus tachycardia at 127 bpm [place] interval is 134 QRS is 118 QT interval 332 QTC is 42. Patient's EKG shows no ST segment elevation. Patient's CT of the chest shows no PE or acute lung abnormality. Patient stated his chest pain was better in the emergency department. I spoke with Dr. Tejeda agreed to admit the patient admitted the patient wrote admitting orders. - Lab Data Result diagrams: 08/10/20 17:59 08/10/20 17:59 Lab Results 08/10/20 08/10/20 08/10/20 Range/Units 17:59 17:59 17:59 WBC 14.9 H (3.8-10.6) k/uL RBC 4.21 L (4.30-5.90) m/uL Hgb 13.1 (13.0-17.5) gm/dL Hct 39.1 (39.0-53.0) % MCV 92.8 (80.0-100.0) fL MCH 31.0 (25.0-35.0) pg MCHC 33.4 (31.0-37.0) g/dL RDW 12.6 (11.5-15.5) % Plt Count 484 H (150-450) k/uL MPV 7.3 Neutrophils % 81 % Lymphocytes % 10 % Monocytes % 5 % Eosinophils % 3 % Basophils % 0 % Neutrophils # 12.0 H (1.3-7.7) k/uL Lymphocytes # 1.5 (1.0-4.8) k/uL Monocytes # 0.7 (0-1.0) k/uL Eosinophils # 0.4 (0-0.7) k/uL Basophils # 0.1 (0-0.2) k/uL PT 10.4 (9.0-12.0) sec INR 1.0 (<1.2) APTT 27.8 (22.0-30.0) sec D-Dimer 1.66 H (<0.60) mg/L FEU Sodium 140 (137-145) mmol/L Potassium 4.6 (3.5-5.1) mmol/L Chloride 106 (98-107) mmol/L Carbon Dioxide 24 (22-30) mmol/L Anion Gap 10 mmol/L BUN 15 (9-20) mg/dL Creatinine 0.73 (0.66-1.25) mg/dL Est GFR (CKD-EPI)AfAm >90 (>60 ml/min/1.73 sqM) Est GFR (CKD-EPI)NonAf >90 (>60 ml/min/1.73 sqM) Glucose 143 H (74-99) mg/dL Calcium 8.7 (8.4-10.2) mg/dL Magnesium 1.9 (1.6-2.3) mg/dL Total Bilirubin 0.4 (0.2-1.3) mg/dL AST 24 (17-59) U/L ALT 19 (4-49) U/L Alkaline Phosphatase 111 (38-126) U/L Troponin I (0.000-0.034) ng/mL NT-Pro-B Natriuret Pep pg/mL Total Protein 6.1 L (6.3-8.2) g/dL Albumin 3.0 L (3.5-5.0) g/dL Influenza Type A (PCR) (Not Detectd) Influenza Type B (PCR) (Not Detectd) RSV (PCR) (Not Detectd) SARS-CoV-2 (PCR) (Not Detectd) 08/10/20 08/10/20 08/10/20 Range/Units 17:59 17:59 18:01 WBC (3.8-10.6) k/uL RBC (4.30-5.90) m/uL Hgb (13.0-17.5) gm/dL Hct (39.0-53.0) % MCV (80.0-100.0) fL MCH (25.0-35.0) pg MCHC (31.0-37.0) g/dL RDW (11.5-15.5) % Plt Count (150-450) k/uL MPV Neutrophils % % Lymphocytes % % Monocytes % % Eosinophils % % Basophils % % Neutrophils # (1.3-7.7) k/uL Lymphocytes # (1.0-4.8) k/uL Monocytes # (0-1.0) k/uL Eosinophils # (0-0.7) k/uL Basophils # (0-0.2) k/uL PT (9.0-12.0) sec INR (<1.2) APTT (22.0-30.0) sec D-Dimer (<0.60) mg/L FEU Sodium (137-145) mmol/L Potassium (3.5-5.1) mmol/L Chloride (98-107) mmol/L Carbon Dioxide (22-30) mmol/L Anion Gap mmol/L BUN (9-20) mg/dL Creatinine (0.66-1.25) mg/dL Est GFR (CKD-EPI)AfAm (>60 ml/min/1.73 sqM) Est GFR (CKD-EPI)NonAf (>60 ml/min/1.73 sqM) Glucose (74-99) mg/dL Calcium (8.4-10.2) mg/dL Magnesium (1.6-2.3) mg/dL Total Bilirubin (0.2-1.3) mg/dL AST (17-59) U/L ALT (4-49) U/L Alkaline Phosphatase (38-126) U/L Troponin I <0.012 (0.000-0.034) ng/mL NT-Pro-B Natriuret Pep 574 pg/mL Total Protein (6.3-8.2) g/dL Albumin (3.5-5.0) g/dL Influenza Type A (PCR) Not Detected (Not Detectd) Influenza Type B (PCR) Not Detected (Not Detectd) RSV (PCR) Not Detected (Not Detectd) SARS-CoV-2 (PCR) Not Detected (Not Detectd) Disposition Clinical Impression: Chest pain Disposition: ADMITTED IP TO THIS HOSP Referrals: Galilea Perales III, MD [Primary Care Provider] - 1-2 days Time of Disposition: 21:17
[2020-08-10 18:12] LABS: Basophils # (A) 0.1 k/uL (0-0.2); Basophils % (A) 0 %; Eosinophils # (A) 0.4 k/uL (0-0.7); Eosinophils % (A) 3 %; HCT 39.1 % (39.0-53.0); HGB 13.1 gm/dL (13.0-17.5); Lymphocytes # (A) 1.5 k/uL (1.0-4.8); Lymphocytes % (A) 10 %; MCHC 33.4 g/dL (31.0-37.0); MCV 92.8 fL (80.0-100.0); Mean Platelet Volume 7.3; Monocytes # (A) 0.7 k/uL (0-1.0); Monocytes % (A) 5 %; Neutrophils % (A) 81 %; Platelet Count 484 k/uL (150-450); RBC 4.21 m/uL (4.30-5.90); RDW 12.6 % (11.5-15.5); WBC 14.9 k/uL (3.8-10.6)
[2020-08-10 18:22] LABS: ALT 19 U/L (4-49); AST 24 U/L (17-59); African American GFR (CKD) >90 (>60 ml/min/1.73 sqM); Alkaline Phosphatase 111 U/L (38-126); Anion Gap 10 mmol/L; Blood Urea Nitrogen 15 mg/dL (9-20); Calcium 8.7 mg/dL (8.4-10.2); Carbon Dioxide 24 mmol/L (22-30); Chloride 106 mmol/L (98-107); Glucose 143 mg/dL (74-99); Magnesium 1.9 mg/dL (1.6-2.3); Non-African American GFR(CKD) >90 (>60 ml/min/1.73 sqM); Potassium 4.6 mmol/L (3.5-5.1); Sodium 140 mmol/L (137-145); Total Bilirubin 0.4 mg/dL (0.2-1.3); Total Protein 6.1 g/dL (6.3-8.2)
[2020-08-10 18:27] LABS: Partial Thromboplastin Time 27.8 sec (22.0-30.0); Prothrombin Time 10.4 sec (9.0-12.0)
[2020-08-10 18:38] LABS: D-Dimer 1.66 mg/L FEU (<0.60)
--- NOTE | 2020-08-10 19:33 | XR ---
EXAMINATION TYPE: XR chest 1V portable DATE OF EXAM: 08/10/2020 COMPARISON: 09/26/2016 HISTORY: Chest pain TECHNIQUE: Single frontal view of the chest is obtained. FINDINGS: There is no focal air space opacity, pleural effusion, or pneumothorax seen. The cardiac silhouette size is borderline enlarged. The osseous structures are intact. IMPRESSION: No acute process.
--- NOTE | 2020-08-10 20:53 | CT ---
EXAMINATION TYPE: CT chest angio for PE DATE OF EXAM: 08/10/2020 COMPARISON: Same-day radiograph. HISTORY: Chest pain. CT DLP: 839.6 mGycm Automated exposure control for dose reduction was used. CONTRAST: CT Chest for pulmonary embolism performed with with IV Contrast, patient injected with 100ml mL of Is ovue 370. FINDINGS: LUNGS: The lungs are grossly clear, there is no concerning parenchymal mass or nodule identified. T here is no pleural effusion or pneumothorax seen. The tracheobronchial tree is patent. There is a 6 mm left lower lobe calcified granuloma. MEDIASTINUM: There is suboptimal opacification of pulmonary arteries. However there is adequate opaci fication of the central right and left pulmonary arteries. There is no CT evidence for pulmonary embo lism. There are no greater than 1 cm hilar or mediastinal lymph nodes. No pericardial effusion is seen. OTHER: Left gynecomastia seen. Scattered multiple small benign splenic calcifications noted. No don tional significant abnormality is seen. IMPRESSION: Suboptimal evaluation of pulmonary arteries. No evidence of central PE or other cardiopulmonary abnormality.
[2020-08-10] MEDS ORDERED: NITROGLYCERIN SL TABS 0.4 MG TAB SUBLINGUAL PRN (21:18)
[2020-08-11] MEDS: NITROGLYCERIN OINT 1 INCH/GM PACKET TOPICAL SCH ×4 (01:18→17:32)
[2020-08-11 05:00] LABS: Appearance,Urine Clear (Clear); Bilirubin,Urine Negative (Negative); Blood,Urine Negative (Negative); Color,Urine Yellow; Glucose,Urine (UA) Negative (Negative); Ketones,Urine Trace (Negative); Leukocyte Esterase,Urine Negative (Negative); Nitrite,Urine Negative (Negative); Protein,Urine Trace (Negative); Urobilinogen,Urine <2.0 mg/dL (<2.0)
[2020-08-11 06:45] LABS: Cholesterol 142 mg/dL (<200); HDL Cholesterol 21 mg/dL (40-60); LDL Cholesterol,Calculated 104 mg/dL (0-99); Triglycerides 83 mg/dL (<150)
[2020-08-11] MEDS ORDERED: ASPIRIN 81 MG PO SCH (09:00)
[2020-08-11] MEDS ORDERED: ASPIRIN 325 MG TAB PO SCH (09:00)
[2020-08-11] MEDS ORDERED: CAFFEINE CITRATE 60 MG/3 ML VIAL IV PRN (09:09)
[2020-08-11] MEDS ORDERED: REGADENOSON 0.4 MG/5 ML SYRINGE IV PRN (09:09)
[2020-08-11] MEDS ORDERED: AMINOPHYLLINE 500 MG/20 ML VIAL IV PRN (09:09)
[2020-08-11] MEDS: lisinopriL 5 MG TAB PO SCH (09:15)
[2020-08-11] MEDS: ATORVASTATIN 40 MG TAB PO SCH ×3 (09:15→10:39)
[2020-08-11] MEDS ORDERED: ALPRAZolam 0.5 MG TAB PO PRN (09:42)
[2020-08-11] MEDS ORDERED: ATORVASTATIN 80 MG TAB PO STA (09:42)
[2020-08-11] MEDS ORDERED: NITROGLYCERIN SL TABS 0.4 MG TAB SUBLINGUAL PRN (09:42)
[2020-08-11] MEDS ORDERED: SODIUM CHLORIDE 0.9% 1,000 ML in EMPTY BAG 1 BAG IV ONE (09:42)
[2020-08-11] MEDS ORDERED: ASPIRIN 325 MG TAB PO STA (09:42)
[2020-08-11] MEDS ORDERED: ALPRAZolam 0.25 MG TAB PO PRN (09:42)
--- NOTE | 2020-08-11 10:14 | P.CRDCN ---
History of Present Illness History of present illness: HISTORY OF PRESENTING ILLNESS This is a pleasant 69-year-old past medical history significant for diabetes mellitus, hypertension and cataracts. He denies prior history of coronary artery disease and does not follow in the office with a information technology internship. We have been asked to see in consultation for chest pain. He states this happened acutely 2 weeks ago. He started noticing he was short of breath with exertion. He typically exercises and walks regularly and was unable to maintain this without stopping frequently due to shortness of breath. He saw his PCP and was recommended to see a information technology internship. However, his symptoms yesterday became worse. He also was feeling a grabbing squeezing sensation in the left precordial region that radiated to the base of his neck. The chest pain mostly occurred at night when he would lay down. He was short of breath at that time. DIAGNOSTICS EKG reveals sinus tachycardia with right bundle branch block heart rate 127. Telemetry tracings indicate sinus tachycardia. Chest xray negative for an acute cardiopulmonary process. Laboratory reviewed, cardiac enzymes negative 3, LDL 104, HDL 21, WBC 14.9, hemoglobin 13.1, platelets 484, d-dimer 1.66, sodium 140, potassium 4.6, creatinine 0.73, proBNP 574 and magnesium 1.9. Current cardiac medications include aspirin 81 mg daily. REVIEW OF SYSTEMS At the time of my exam: CONSTITUTIONAL: Denies fever or chills. CARDIOVASCULAR: Denies chest pain, shortness of breath, orthopnea, PND or pal pitations. RESPIRATORY: Denies cough. GASTROINTESTINAL: Denies abdominal pain, diarrhea, constipation, nausea or vomiting. MUSCULOSKELETAL: Denies myalgias. NEUROLOGIC: Denies numbness, tingling, headacbe or weakness. ENDOCRINE: Denies fatigue, weight change, polydipsia or polyurina. GENITOURINARY: Denies burning, hematuria or urgency with micturation. HEMATOLOGIC: Denies history of anemia or bleeding. PHYSICAL EXAMINATION Blood pressure 132/69 heart rate 92 afebrile and maintaining oxygen saturation on nasal cannula. CONSTITUTIONAL: No apparent distress. HEENT: Head is normocephalic. Pupils are equal, round. Sclerae anicteric. Mucous membranes of the mouth are moist. No JVD. No carotid bruit. CHEST EXAMINATION: Lungs are clear to auscultation. No chest wall tenderness is noted on palpation or with deep breathing. HEART EXAMINATION: Regular rate and rhythm. S1, S2 heard. Systolic ejection murmur at the base, no gallops or rub. ABDOMEN: Soft, nontender. Positive bowel sounds. EXTREMITIES: 2+ peripheral pulses, no lower extremity edema and no calf tenderness. NEUROLOGIC EXAMINATION: Patient is awake, alert and oriented x3. ASSESSMENT Unstable angina Diabetes mellitus Hypertension Dyslipidemia PLAN Recommend proceeding with coronary angiography to assess for underlying coronary artery disease.I have discussed the risks, benefits and alternative therapies for the above-mentioned procedure and for both sedation/analgesia as well as necessary blood product administration, if indicated, as they pertain to this patient. The patient has indicated understanding and acceptance of the risks and procedures discussed. Questions have been answered appropriately and he is agreeable to move forward with the above-stated procedure. Obtain 2-D echocardiogram and Doppler study to assess cardiac structure and function. Initiate atorvastatin 40 mg daily, lisinopril 5 mg daily and decrease aspirin to 81 mg daily. Further recommendations to follow based on clinical course. Thank you kindly for this consultation. Nurse Practitioner note has been reviewed, I agree with a documented findings and plan of care. Patient was seen and examined. Past Medical History Past Medical History: Diabetes Mellitus, Eye Disorder, Hyperlipidemia, Hypertension Additional Past Medical History / Comment(s): BORDERLINE HTN, borderline hyperlipidema, borderline Diabetes. Hx kidney stones. BLOOD IN STOOL History of Any Multi-Drug Resistant Organisms: None Reported Past Surgical History: Appendectomy, Orthopedic Surgery Additional Past Surgical History / Comment(s): Bilateral cataract removal with lens implants, bilateral strabismus surgery, cystoscopies for stone removals, R knee shattered and surgically repaired-has hardware. COLONOSCOPY Past Anesthesia/Blood Transfusion Reactions: No Reported Reaction Past Psychological History: Bipolar, Depression Additional Psychological History / Comment(s): Pt states he is not on medication for his bipolar because he did not "react well to it." Smoking Status: Never smoker Past Alcohol Use History: None Reported Additional Past Alcohol Use History / Comment(s): PAST ALCOHOL ABUSE, quit 10-12 yrs ago. Past Drug Use History: None Reported - Past Family History Father Family Medical History: Coronary Artery Disease (CAD), Hypertension, Myocardial Infarction ([place]) Additional Family Medical History / Comment(s): Father at 74 or 76yrs of age from a [place]. Mother Family Medical History: Hypertension Additional Family Medical History / Comment(s): Mother at the age of 82 yrs from sepsis. Medications and Allergies Home Medications Medication Instructions Recorded Confirmed Type metFORMIN HCL [Glucophage] 500 mg PO DAILY 03/26/19 08/10/20 History Tamsulosin HCl [Flomax] 0.4 mg PO DAILY 09/11/19 08/10/20 History Acetaminophen Tab [Tylenol] 650 mg PO Q4H PRN 08/10/20 08/10/20 History Aspirin EC [Ecotrin Low Dose] 81 mg PO DAILY 08/10/20 08/10/20 History Allergies Allergy/AdvReac Type Severity Reaction Status Date / Time diphenhydramine AdvReac SUICIDAL Verified 08/10/20 18:45 [From Lio] Physical Exam Vitals: Vital Signs Temp Pulse Pulse Resp BP BP Pulse Ox 08/11/20 07:00 97.9 F 92 18 132/69 97 08/11/20 02:00 87 20 08/11/20 00:33 98.2 F 87 20 98 08/10/20 19:54 98 20 139/78 98 08/10/20 17:24 99.6 F 136 H 22 148/71 94 L Intake and Output 08/10/20 08/11/20 08/11/20 22:59 06:59 14:59 Other: # Voids 1 Weight 123.377 kg 123.377 kg Results 08/10/20 17:59 08/10/20 17:59 Cardiac Enzymes 08/10/20 08/10/20 08/10/20 Range/Units 17:59 17:59 21:50 AST 24 (17-59) U/L Troponin I <0.012 <0.012 (0.000-0.034) ng/mL 08/11/20 Range/Units 01:11 AST (17-59) U/L Troponin I <0.012 (0.000-0.034) ng/mL Coagulation 08/10/20 Range/Units 17:59 PT 10.4 (9.0-12.0) sec APTT 27.8 (22.0-30.0) sec Lipids 08/11/20 Range/Units 05:54 Triglycerides 83 (<150) mg/dL Cholesterol 142 (<200) mg/dL HDL Cholesterol 21 L (40-60) mg/dL CBC 08/10/20 Range/Units 17:59 WBC 14.9 H (3.8-10.6) k/uL RBC 4.21 L (4.30-5.90) m/uL Hgb 13.1 (13.0-17.5) gm/dL Hct 39.1 (39.0-53.0) % Plt Count 484 H (150-450) k/uL Comprehensive Metabolic Panel 08/10/20 Range/Units 17:59 Sodium 140 (137-145) mmol/L Potassium 4.6 (3.5-5.1) mmol/L Chloride 106 (98-107) mmol/L Carbon Dioxide 24 (22-30) mmol/L BUN 15 (9-20) mg/dL Creatinine 0.73 (0.66-1.25) mg/dL Glucose 143 H (74-99) mg/dL Calcium 8.7 (8.4-10.2) mg/dL AST 24 (17-59) U/L ALT 19 (4-49) U/L Alkaline Phosphatase 111 (38-126) U/L Total Protein 6.1 L (6.3-8.2) g/dL Albumin 3.0 L (3.5-5.0) g/dL Current Medications Generic Name Dose Route Start Last Admin Trade Name Freq PRN Reason Stop Dose Admin Aspirin 81 mg 08/11/20 09:00 Aspirin 325 Mg Tab PO DAILY [facility] Atorvastatin Calcium 40 mg 08/11/20 09:00 Atorvastatin 40 Mg Tab PO DAILY [facility] Lisinopril 5 mg 08/11/20 09:00 Lisinopril 5 Mg Tab PO DAILY [facility] Nitroglycerin 0.4 mg 08/10/20 21:18 Nitroglycerin Sl Tabs 0.4 Mg Tab SUBLINGUAL Q5M PRN Chest Pain Nitroglycerin 1 inch 08/11/20 00:00 08/11/20 06:19 Nitroglycerin Oint 1 Inch/Gm Packet TOPICAL 1 inch Q6HR [facility] Administration Intake and Output 08/10/20 08/11/20 08/11/20 22:59 06:59 14:59 Other: # Voids 1 Weight 123.377 kg 123.377 kg 08/10/20 17:59 08/10/20 17:59
[2020-08-11] MEDS: TAMSULOSIN 0.4 MG CAP.ER.24H PO SCH (10:36)
[2020-08-11 10:44] LABS: Glucose,Whole Blood 108 mg/dL (75-99)
--- NOTE | 2020-08-11 11:30 | ECHOF ---
Referral Reason:exertional sob MEASUREMENTS -------- HEIGHT: 177.8 cm WEIGHT: 123.4 kg BP: RVIDd: 3.7 cm (< 3.3) IVSd: 1.5 cm (0.6 - 1.1) LVIDd: 5.2 cm (3.9 - 5.3) LVPWd: 1.5 cm (0.6 - 1.1) IVSs: 2.3 cm LVIDs: 3.8 cm LVPWs: 2.1 cm LA Diam: 3.8 cm (2.7 - 3.8) LAESV Index (A-L): 20.12 ml/m Ao Diam: 3.4 cm (2.0 - 3.7) AV Cusp: 2.3 cm (1.5 - 2.6) MV EXCURSION: 22.646 mm (> 18.000) MV EF SLOPE: 59 mm/s (70 - 150) EPSS: 1.0 cm MV E Higinio: 1.10 m/s MV DecT: 220 ms MV A Higinio: 1.06 m/s MV E/A Ratio: 1.03 AV maxP.87 mmHg AV meanP.06 mmHg FINDINGS -------- Sinus rhythm. This was a technically difficult study with suboptimal views. The left ventricular size is normal. There is moderate concentric left ventricular hypertrophy. O verall left ventricular systolic function is normal with, an EF between 55 - 60 %. The right ventricle is mild to moderately enlarged. Normal LA size by volume 22+/-6 ml/m2. The right atrial size is normal. 5 ml of Lumason was utilized for enhancement of images. Interatrial and interventricular septum intact. There is mild aortic valve sclerosis. There is mild aortic stenosis present. Peak/mean gradient a cross the Aortic Valve is 15.87mmHg / 8.06mmHg. Mild mitral annular calcification present. Mild mitral regurgitation is present. The tricuspid valve appears structurally normal. Mild tricuspid regurgitation present. There is no pulmonic regurgitation present. The aortic root size is normal. Normal inferior vena cava with normal inspiratory collapse consistent with estimated right atrial pre ssure of 5 mmHg. There is no pericardial effusion. CONCLUSIONS -------- 1. This was a technically difficult study with suboptimal views. 2. There is moderate concentric left ventricular hypertrophy. 3. Overall left ventricular systolic function is normal with, an EF between 55 - 60 %. 4. The right ventricle is mild to moderately enlarged. 5. Normal LA size by volume 22+/-6 ml/m2. 6. 5 ml of Lumason was utilized for enhancement of images. 7. There is mild aortic valve sclerosis. 8. There is mild aortic stenosis present. 9. Peak/mean gradient across the Aortic Valve is 15.87mmHg / 8.06mmHg. 10. Mild mitral annular calcification present. 11. Mild mitral regurgitation is present. 12. Mild tricuspid regurgitation present. 13. There is no pericardial effusion. SPANISH INTERPRETER: Deepika Unger RDCS
--- NOTE | 2020-08-11 11:42 | P.HPIM ---
History of Present Illness 69-year-old pleasant male came in with complaints of chest pain pressure-like sensation has been going on for about 2 weeks along with shortness of breath. Patient was also company of neck pain and the symptoms consistent with cervical spondylosis with the pain radiating to the chest area which is a burning sensation. Patient denied any fever chills. Patient is obese doesn't use any oxygen at home was tested for sleep apnea years ago. Patient has a mildly elevated d-dimer as of which patient had a CT angios the chest which did not show any pulmonary embolism no evidence of pneumonia. Patient had an EKG showed sinus tachycardia with right bundle branch block LDL 104. BNP is only 574. Patient to chest pain has some pleuritic competent. Patient had a CT angios the chest but there is no mention of any bony structure abnormalities on the report. Review of Systems REVIEW OF SYSTEMS: CONSTITUTIONAL: No fever, no malaise, no fatigue. HEENT: No recent visual problems or hearing problems. Denied any sore throat. CARDIOVASCULAR: No orthopnea, PND, no palpitations, no syncope. PULMONARY: no cough, no hemoptysis. GASTROINTESTINAL: No diarrhea, no nausea, no vomiting, no abdominal pain. NEUROLOGICAL: No headaches, no weakness, no numbness. HEMATOLOGICAL: Denies any bleeding or petechiae. GENITOURINARY: Denies any burning micturition, frequency, or urgency. MUSCULOSKELETAL/RHEUMATOLOGICAL: Denies any joint pain, swelling, or any muscle pain. ENDOCRINE: Denies any polyuria or polydipsia. The rest of the 14-point review of systems is negative. Past Medical History Past Medical History: Diabetes Mellitus, Eye Disorder, Hyperlipidemia, Hypertension Additional Past Medical History / Comment(s): BORDERLINE HTN, borderline hyperlipidema, borderline Diabetes. Hx kidney stones. BLOOD IN STOOL History of Any Multi-Drug Resistant Organisms: None Reported Past Surgical History: Appendectomy, Orthopedic Surgery Additional Past Surgical History / Comment(s): Bilateral cataract removal with lens implants, bilateral strabismus surgery, cystoscopies for stone removals, R knee shattered and surgically repaired-has hardware. COLONOSCOPY Past Anesthesia/Blood Transfusion Reactions: No Reported Reaction Past Psychological History: Bipolar, Depression Additional Psychological History / Comment(s): Pt states he is not on medication for his bipolar because he did not "react well to it." Smoking Status: Never smoker Past Alcohol Use History: None Reported Additional Past Alcohol Use History / Comment(s): PAST ALCOHOL ABUSE, quit 10-12 yrs ago. Past Drug Use History: None Reported - Past Family History Father Family Medical History: Coronary Artery Disease (CAD), Hypertension, Myocardial Infarction ([place]) Additional Family Medical History / Comment(s): Father at 74 or 76yrs of age from a [place]. Mother Family Medical History: Hypertension Additional Family Medical History / Comment(s): Mother at the age of 82 yrs from sepsis. Medications and Allergies Home Medications Medication Instructions Recorded Confirmed Type metFORMIN HCL [Glucophage] 500 mg PO DAILY 03/26/19 08/10/20 History Tamsulosin HCl [Flomax] 0.4 mg PO DAILY 09/11/19 08/10/20 History Acetaminophen Tab [Tylenol] 650 mg PO Q4H PRN 08/10/20 08/10/20 History Aspirin EC [Ecotrin Low Dose] 81 mg PO DAILY 08/10/20 08/10/20 History Allergies Allergy/AdvReac Type Severity Reaction Status Date / Time diphenhydramine AdvReac SUICIDAL Verified 08/10/20 18:45 [From Benadryl] Physical Exam Vitals: Vital Signs Temp Pulse Pulse Resp BP BP Pulse Ox 08/11/20 07:00 97.9 F 92 18 132/69 97 08/11/20 02:00 87 20 08/11/20 00:33 98.2 F 87 20 98 08/10/20 19:54 98 20 139/78 98 08/10/20 17:24 99.6 F 136 H 22 148/71 94 L Intake and Output 08/10/20 08/11/20 08/11/20 22:59 06:59 14:59 Other: # Voids 1 Weight 123.377 kg 123.377 kg PHYSICAL EXAMINATION: GENERAL: The patient is alert and oriented x3, not in any acute distress. Well developed, well nourished. HEENT: Pupils are round and equally reacting to light. EOMI. No scleral icterus. No conjunctival pallor. Normocephalic, atraumatic. No pharyngeal erythema. No thyromegaly. CARDIOVASCULAR: S1 and S2 present. No murmurs, rubs, or gallops. PULMONARY: Chest is clear to auscultation, no wheezing or crackles. ABDOMEN: Soft, nontender, nondistended, normoactive bowel sounds. No palpable organomegaly. MUSCULOSKELETAL: No joint swelling or deformity. EXTREMITIES: No cyanosis, clubbing, or pedal edema. NEUROLOGICAL: Gross neurological examination did not reveal any focal deficits. SKIN: No rashes. Results CBC & Chem 7: 08/10/20 17:59 08/10/20 17:59 Labs: Abnormal Lab Results - Last 24 Hours (Table) 08/10/20 08/10/20 08/10/20 Range/Units 17:59 17:59 17:59 WBC 14.9 H (3.8-10.6) k/uL RBC 4.21 L (4.30-5.90) m/uL Plt Count 484 H (150-450) k/uL Neutrophils # 12.0 H (1.3-7.7) k/uL D-Dimer 1.66 H (<0.60) mg/L FEU Glucose 143 H (74-99) mg/dL POC Glucose (mg/dL) (75-99) mg/dL Total Protein 6.1 L (6.3-8.2) g/dL Albumin 3.0 L (3.5-5.0) g/dL LDL Cholesterol, Calc (0-99) mg/dL HDL Cholesterol (40-60) mg/dL Ur Specific [place] (1.001-1.035) Urine Protein (Negative) Urine Ketones (Negative) 08/11/20 08/11/20 08/11/20 Range/Units 04:00 05:54 10:43 WBC (3.8-10.6) k/uL RBC (4.30-5.90) m/uL Plt Count (150-450) k/uL Neutrophils # (1.3-7.7) k/uL D-Dimer (<0.60) mg/L FEU Glucose (74-99) mg/dL POC Glucose (mg/dL) 108 H (75-99) mg/dL Total Protein (6.3-8.2) g/dL Albumin (3.5-5.0) g/dL LDL Cholesterol, Calc 104 H (0-99) mg/dL HDL Cholesterol 21 L (40-60) mg/dL Ur Specific [place] 1.050 H (1.001-1.035) Urine Protein Trace H (Negative) Urine Ketones Trace H (Negative) Thrombosis Risk Factor Assmnt - Choose All That Apply Each Risk Factor Represents 2 Points: Age 61-74 years Thrombosis Risk Factor Assessment Total Risk Factor Score: 2 Thrombosis Risk Factor Assessment Level: Low Risk Assessment and Plan Plan: Chest pain possibility of unstable angina ruled out acute, syndromes patient probably will undergo cardiac catheterization cardiology evaluated the patient today patient is presently on statin aspirin, lisinopril -Cervical spondylosis -Type 2 diabetes mellitus -Hypertension Hyperlipoidemia -Rule out pulmonary embolism -Depression next For above-mentioned chronic medical problems patient will be resumed on appropriate home medications
[2020-08-11] MEDS: ACETAMINOPHEN TAB 325 MG TAB PO PRN ×2 (17:36→23:38)
[2020-08-11 21:00] LABS: Glucose,Whole Blood 119 mg/dL (75-99)
[2020-08-12] MEDS: NITROGLYCERIN OINT 1 INCH/GM PACKET TOPICAL SCH ×3 (00:14→13:48)
[2020-08-12] MEDS ORDERED: ASPIRIN 325 MG TAB PO ONE (06:00)
[2020-08-12] MEDS ORDERED: HEPARIN SODIUM,PORCINE 10,000 UNIT in SODIUM CHLORIDE 0.9% 1,000 ML IRRIGATION PRN (07:00)
[2020-08-12] MEDS ORDERED: HEPARIN SODIUM,PORCINE 2,500 UNIT in SODIUM CHLORIDE 0.9% 250 ML IRRIGATION PRN (07:00)
[2020-08-12 07:08] LABS: Glucose,Whole Blood 133 mg/dL (75-99)
[2020-08-12 07:34] VITALS: TEMP 98.7
[2020-08-12] MEDS: lisinopriL 5 MG TAB PO SCH (08:20)
[2020-08-12] MEDS: TAMSULOSIN 0.4 MG CAP.ER.24H PO SCH (08:20)
[2020-08-12] MEDS: ACETAMINOPHEN TAB 325 MG TAB PO PRN ×2 (08:30→16:00)
[2020-08-12] MEDS ORDERED: IV FLUID CONTINUATION 1,000 ML IV ONE (11:45)
[2020-08-12] MEDS ORDERED: VERAPAMIL 2.5 MG/ML 2 ML AMP ONE (11:47)
[2020-08-12] MEDS ORDERED: LIDOCAINE 1% INJ 10MG/ML (20 ML MDV) ONE (11:47)
[2020-08-12] MEDS ORDERED: fentaNYL (PF) 50 MCG/ML 2 ML AMP ONE (11:54)
--- NOTE | 2020-08-12 12:14 | P.PN ---
Subjective 69-year-old pleasant male came in with complaints of chest pain pressure-like sensation has been going on for about 2 weeks along with shortness of breath. Patient was also company of neck pain and the symptoms consistent with cervical spondylosis with the pain radiating to the chest area which is a burning sensation. Patient denied any fever chills. Patient is obese doesn't use any oxygen at home was tested for sleep apnea years ago. Patient has a mildly elevated d-dimer as of which patient had a CT angios the chest which did not show any pulmonary embolism no evidence of pneumonia. Patient had an EKG showed sinus tachycardia with right bundle branch block LDL 104. BNP is only 574. Patient to chest pain has some pleuritic competent. Patient had a CT angios the chest but there is no mention of any bony structure abnormalities on the report. 08/12/2020 Patient will undergo cardiac catheterization today. Further management issues depending on findings from cardia catheterization. Patient doesn't have any significant disease and doesn't need any stents patient maybe even able to be discharged today. Although patient was complaining of continued chest pain patient does have severe osteoarthritis and chronic low back pain. Constitutional: Denied any fatigue denied any fever. Cardio vascular: Continues to have chest pain Gastrointestinal denied any nausea vomiting Pulmonary: Denied any shortness of breath cough Neurologic denied any new focal deficits All inpatient medications were reviewed and appropriate changes in these medications as dictated in the interval history and assessment and plan. Objective - Vital Signs Vital signs: Vital Signs Temp 98.7 F 08/12/20 07:00 Pulse 101 H 08/12/20 07:00 Resp 18 08/12/20 07:00 BP 127/68 08/12/20 07:00 Pulse Ox 96 08/12/20 07:00 Intake & Output 08/11/20 08/12/20 08/12/20 18:59 06:59 18:59 Other: # Voids 1 1 - Exam PHYSICAL EXAMINATION: GENERAL: The patient is alert and oriented x3, not in any acute distress. Well developed, well nourished. Obese HEENT: Pupils are round and equally reacting to light. EOMI. No scleral icterus. No conjunctival pallor. Normocephalic, atraumatic. No pharyngeal erythema. No thyromegaly. CARDIOVASCULAR: S1 and S2 present. No murmurs, rubs, or gallops. PULMONARY: Chest is clear to auscultation, no wheezing or crackles. ABDOMEN: Soft, nontender, nondistended, normoactive bowel sounds. No palpable organomegaly. MUSCULOSKELETAL: No joint swelling or deformity. EXTREMITIES: No cyanosis, clubbing, or pedal edema. NEUROLOGICAL: Gross neurological examination did not reveal any focal deficits. SKIN: No rashes. - Labs CBC & Chem 7: 08/10/20 17:59 08/10/20 17:59 Labs: Abnormal Lab Results - Last 24 Hours (Table) 08/11/20 08/12/20 Range/Units 20:59 07:06 POC Glucose (mg/dL) 119 H 133 H (75-99) mg/dL Microbiology - Last 24 Hours (Table) 08/10/20 17:59 Blood Culture - Preliminary Blood No Growth after 24 hours 08/10/20 17:59 Blood Culture - Preliminary Blood No Growth after 24 hours Assessment and Plan Plan: Chest pain possibility of unstable angina ruled out acute, syndromes patient probably will undergo cardiac catheterization today cardiology evaluated the patient today patient is presently on statin aspirin, lisinopril -Cervical spondylosis leading to some of the chest pain he is having. -Type 2 diabetes mellitus -Hypertension Hyperlipoidemia -Rule out pulmonary embolism -Depression
[2020-08-12] MEDS ORDERED: fentaNYL (PF) 50 MCG/ML 2 ML AMP IV ONE (12:23)
[2020-08-12] MEDS ORDERED: MIDAZOLAM 2 MG/2 ML VIAL IV ONE (12:23)
[2020-08-12] MEDS ORDERED: LIDOCAINE 1% INJ 10MG/ML (20 ML MDV) SQ ONE (12:24)
[2020-08-12] MEDS ORDERED: VERAPAMIL SYRINGE (5 MG/10 ML) INTRAARTER ONE (12:25)
[2020-08-12] MEDS ORDERED: HEPARIN SODIUM 1,000 UN/ML (10ML VL) ONE (12:30)
[2020-08-12] MEDS ORDERED: HEPARIN SODIUM 1,000 UN/ML (10ML VL) IV ONE (12:31)
[2020-08-12] MEDS ORDERED: IOPAMIDOL-370 125ML BTL INJ ONE (12:40)
[2020-08-12] MEDS ORDERED: RX INFO: IV CONTRAST WAS GIVEN 1 EACH MISC MISCELLANE PRN (12:48)
[2020-08-12] MEDS ORDERED: SODIUM CHLORIDE 0.9% 1,000 ML IV SCH (13:00)
[2020-08-12 13:27] VITALS: RESP 16
--- NOTE | 2020-08-12 15:52 | CC ---
CARDIAC CATHETERIZATION REPORT Mr. Carty is a 69-year-old male with a known history of diabetes mellitus who presented with worsening dyspnea on exertion as well as exertional chest discomfort. In view of his history and the severity of his symptoms, recommendation was made regarding cardiac catheterization. The procedure as well as its risks and complications were discussed with the patient, who was in full understanding and agreement. PROCEDURE DESCRIPTION: Patient was brought to the lab coordinator in a fasting semi-sedated state after receiving fentanyl and Benadryl and achieving moderate conscious sedated state. Using Xylocaine anesthesia and Seldinger technique, a 6-Vincentian sheath was introduced in the right radial artery. Selective right and left coronary angiography was performed using 5- Vincentian 3.5 bend right and left Tracie catheters. Multiple views were taken of the arteries, including hemiaxial views. The right Tracie was used to cross the aortic valve. Following that, catheter and sheath were removed. Hemostasis was obtained with deployment of a TR band. There was no immediate complication. Patient was returned to his room in stable condition. Of note, the patient received 5000 units of intravenous heparin as well as intra-arterial verapamil. FINDINGS: LEFT MAIN: This is a very short vessel, almost nonexistent, trifurcating into left circumflex, left anterior descending artery and ramus intermedius. Left main coronary artery has no evidence of high-grade stenosis. LEFT ANTERIOR DESCENDING ARTERY: This is a large-sized vessel reaching toward the apex with a wrap around the apex segment giving rise to a moderately sized diagonal branch in mid segment. The mid LAD has evidence of intramyocardial bridging with a plaque of about 20%. The rest of the vessel has no high-grade stenosis. RAMUS INTERMEDIUS: This is a large-sized vessel reaching to the apicolateral wall. The ramus intermedius has no evidence of high-grade stenosis. LEFT CIRCUMFLEX: This is a dominant vessel, large in caliber, bifurcating distally into PDA and posterolateral segment and branches giving rise to a small obtuse marginal branch. The left circumflex as well as its branches has no evidence of obstructive coronary artery disease. RIGHT CORONARY ARTERY: This is a small nondominant vessel that has no evidence of high- grade stenosis. LEFT VENTRICULOGRAM: Left ventriculogram was not performed. HEMODYNAMICS: There was no gradient across the aortic valve. The left ventricular end- diastolic pressure was 5 to 8 mmHg. CONCLUSION: 1. 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 2. Left dominance. RECOMMENDATIONS: In view of findings and anatomy, I have recommended continued medical therapy with the aggressive coronary risk modifications that have been initiated. Those findings and recommendations were discussed with the patient, and he is in full understanding and agreement. BARRERA / MALIK: [id number] /
--- NOTE | 2020-08-12 15:58 | LTR ---
August 12, 2020 To: Dr. Perales Re: Shaheen Carty (52) Dear Dr. Perales: I had the pleasure of performing cardiac catheterization on Mr. Carty at [facility] on August 12, and a full copy of the procedure note will be forwarded to you. In brief, he was found to have mild plaque in the mid LAD with myocardial bridging, and based on those findings I have recommended maximizing his medical therapy. Depending on his progress, further recommendations will be made. Thank you again for allowing me to participate in his care. Please feel free to call with any questions. Sincerely yours, Josy Vaughan M.D. BARRERA / MALIK: [id number] /
[2020-08-12 16:31] VITALS: BP 121/62; PULSE 104
[2020-08-12 16:58] LABS: Glucose,Whole Blood 95 mg/dL (75-99)
[2020-08-13] MEDS ORDERED: ASPIRIN 81 MG PO SCH (06:00)
--- NOTE | 2020-08-13 10:14 | P.DS ---
Providers Date of admission: 08/10/20 21:19 Expected date of discharge: 08/12/20 Attending physician: Fly Hinson MD Consults: 08/10/20 21:18 Consult Physician Urgent Consulting Provider: [facility] Consult Reason/Comments: Chest pain Do you want consulting provider notified?: Yes Primary care physician: Galilea Dela Cruz [facility] Course: 69-year-old pleasant male came in with complaints of chest pain pressure-like sensation has been going on for about 2 weeks along with shortness of breath. Patient was also company of neck pain and the symptoms consistent with cervical spondylosis with the pain radiating to the chest area which is a burning sensation. Patient denied any fever chills. Patient is obese doesn't use any oxygen at home was tested for sleep apnea years ago. Patient has a mildly elevated d-dimer as of which patient had a CT angios the chest which did not show any pulmonary embolism no evidence of pneumonia. Patient had an EKG showed sinus tachycardia with right bundle branch block LDL 104. BNP is only 574. Patient to chest pain has some pleuritic competent. Patient had a CT angios the chest but there is no mention of any bony structure abnormalities on the report. 08/12/2020 Patient had a cardiac catheterization which did not show any significant withdrawals protocol closer disease that will need any stents and patient was c leared for discharge and patient will will be discharged and follow-up with the Dr. Perales as an outpatient PHYSICAL EXAMINATION: GENERAL: The patient is alert and oriented x3, not in any acute distress. Well developed, well nourished. Obese HEENT: Pupils are round and equally reacting to light. EOMI. No scleral icterus. No conjunctival pallor. Normocephalic, atraumatic. No pharyngeal erythema. No thyromegaly. CARDIOVASCULAR: S1 and S2 present. No murmurs, rubs, or gallops. PULMONARY: Chest is clear to auscultation, no wheezing or crackles. ABDOMEN: Soft, nontender, nondistended, normoactive bowel sounds. No palpable organomegaly. MUSCULOSKELETAL: No joint swelling or deformity. EXTREMITIES: No cyanosis, clubbing, or pedal edema. NEUROLOGICAL: Gross neurological examination did not reveal any focal deficits. SKIN: No rashes. Assessment and Plan Plan: Chest pain rule out acute medicine syndromes patient had a cardiac catheterization. Mild disease in LAD with a mild plaque. Chest pain may be related to his cervical spondylosis. -Cervical spondylosis . -Type 2 diabetes mellitus -Hypertension Hyperlipoidemia -Rule out pulmonary embolism -Depression Plan - Discharge Summary Discharge Rx Participant: No New Discharge Prescriptions: New Atorvastatin [Lipitor] 40 mg PO DAILY 30 Days #30 tab lisinopriL [Zestril] 5 mg PO DAILY 30 Days #30 tab Continue metFORMIN HCL [Glucophage] 500 mg PO DAILY Tamsulosin HCl [Flomax] 0.4 mg PO DAILY Acetaminophen Tab [Tylenol] 650 mg PO Q4H PRN PRN Reason: Pain Aspirin EC [Ecotrin Low Dose] 81 mg PO DAILY Discharge Medication List metFORMIN HCL [Glucophage] 500 mg PO DAILY 03/26/19 [History] Tamsulosin HCl [Flomax] 0.4 mg PO DAILY 09/11/19 [History] Acetaminophen Tab [Tylenol] 650 mg PO Q4H PRN 08/10/20 [History] Aspirin EC [Ecotrin Low Dose] 81 mg PO DAILY 08/10/20 [History] Atorvastatin [Lipitor] 40 mg PO DAILY 30 Days #30 tab 08/12/20 [Rx] lisinopriL [Zestril] 5 mg PO DAILY 30 Days #30 tab 08/12/20 [Rx] Follow up Appointment(s)/Referral(s): Josy Vaughan MD [STAFF PHYSICIAN] - 1 Week (office will call to schedule ) Galilea Perales III, MD [Primary Care Provider] - 1-2 days Patient Instructions/Handouts: *Surgery [facility] - After Heart Catheterization - [employer] Instructions Activity/Diet/Wound Care/Special Instructions: Resume Metformin in 48 hours after discharge Activity Limited until follow-up Follow-up with primary care provider outpatient Follow-up with cardiology outpatient Continue medications as prescribed Continue to monitor blood sugars and keep a diary for primary care follow-up Continue with consistent carb heart healthy diet Discharge Disposition: HOME SELF-CARE
== END 2020-08-12 17:59 | disposition home or self-care (01) ==
LOC: EC 17:19 → 6NMEDSUR 21:19
PROVIDERS: ADMIT Internal Medicine; ATTEND Internal Medicine
DX: R07.9 Chest pain, unspecified (principal); M47.812 Spondylosis without myelopathy or radiculopathy, cervical region; E11.9 Type 2 diabetes mellitus without complications; I10 Essential (primary) hypertension; R00.0 Tachycardia, unspecified; F31.9 Bipolar disorder, unspecified; R06.02 Shortness of breath; E78.5 Hyperlipidemia, unspecified; R79.89 Other specified abnormal findings of blood chemistry; Q24.5 Malformation of coronary vessels; I45.10 Unspecified right bundle-branch block; G89.29 Other chronic pain; M54.5 Low back pain; Z20.822 Contact with and (suspected) exposure to COVID-19; Z79.899 Other long term (current) drug therapy; Z79.84 Long term (current) use of oral hypoglycemic drugs; Z79.82 Long term (current) use of aspirin; Z88.8 Allergy status to other drugs, medicaments and biological substances; Z87.442 Personal history of urinary calculi; Z96.1 Presence of intraocular lens; Z98.41 Cataract extraction status, right eye; Z98.42 Cataract extraction status, left eye; Z82.49 Family history of ischemic heart disease and other diseases of the circulatory system
CPT/HCPCS: 96361 ×2; 96360; 99285; 36415; 93005; 93458; 85379; 83880; 80061; 80053; 83735; 84484 ×2; 85025; 85610; 85730; 81003; 87040; 87636; 71045; 71275; G0378 ×3; C8929; C1894; C1769; J2250; J2001; J3010; J1644; Q9950; Q9967 ×2; 93306

== ENCOUNTER 2020-10-22 06:11 | Day surgery (SDC) | payer MEDICARE, OTHER ==
[2020-10-22 07:12] VITALS: RESP 16; TEMP 97.6
[2020-10-22 07:19] LABS: Glucose,Whole Blood 99 mg/dL (75-99)
[2020-10-22] MEDS ORDERED: PROPOFOL 10 MG/ML 20 ML VIAL IV ONE (07:38)
--- NOTE | 2020-10-22 08:26 | P.PCN ---
Date of Procedure: 10/22/20 Description of Procedure: BRIEF HISTORY: Patient is a 70-year-old male with a history of colon polyps, diverticulosis and hemorrhoids presents for evaluation of symptoms of melena, blood per rectum and incomplete evacuation. He reports symptoms of incomplete evacuation as well as episodes of bright red blood and melanotic stool. Prior colonoscopy in 09/2019 significant for polypectomy, diverticulosis and hemorrhoids. PROCEDURE PERFORMED: Colonoscopy with polypectomy. PREOPERATIVE DIAGNOSIS: Melena, blood per rectum, incomplete evacuation. ESTIMATED BLOOD LOSS: Minimal. IV sedation per Anesthesia. PROCEDURE: After informed consent was obtained, the patient, was brought into the endoscopy unit. IV sedation was administered by Anesthesia under continuous monitoring. Digital rectal examination was normal. Initially the Olympus CF-190 flexible video colonoscope was then inserted in the rectum, gradually advanced into the cecum without any difficulty. Careful examination was performed as the scope was gradually being withdrawn. Ileocecal valve and the appendiceal orifice were visualized and appeared normal. Prep was excellent. Mucosa of the cecum, ascending colon, transverse colon, descending colon, sigmoid colon, and rectum appeared normal. Multiple small mouth diverticula noted in the sigmoid colon. Diminutive ascending colon polyp removed with cold forcep polypectomy. Flat 4 mm transverse colon polyp removed with cold snare polypectomy. Random biopsies of the right colon, left colon and a normal-appearing terminal ileum given altered bowel function. Retroflexion was performed in the rectum and no lesions were seen, With grade 2 internal hemorrhoids with some erythema in the surrounding mucosa noted. The patient tolerated the procedure well. IMPRESSION: Diminutive ascending colon polyp removed with cold forcep polypectomy. Flat transverse colon polyp removed with cold snare polypectomy. Mild sigmoid diverticulosis. Grade 2 internal hemorrhoids with some surrounding erythema of the mucosa. Random biopsies of a normal-appearing terminal ileum, right colon and left colon. RECOMMENDATIONS: Findings of this examination were discussed with the patient and his family. Okay to resume diet. Okay to resume medication. Stool softener prescribed. Local hemorrhoidal care with topical steroid prescribed. Patient will be given referral to colorectal surgery for endoscopy for evaluation of hemorrhoids and local perirectal mucosal inflammation. Await pathology from biopsies and polypectomy.
[2020-10-22 08:42] VITALS: BP 119/70; PULSE 58
== END 2020-10-22 09:19 | disposition home or self-care (01) ==
LOC: ORWHC2ENDO 06:11
PROVIDERS: ATTEND Internal Medicine
DX: D12.2 Benign neoplasm of ascending colon (principal); D12.3 Benign neoplasm of transverse colon; K57.30 Diverticulosis of large intestine without perforation or abscess without bleeding; K64.1 Second degree hemorrhoids; E11.9 Type 2 diabetes mellitus without complications; Z87.19 Personal history of other diseases of the digestive system
CPT/HCPCS: 45380; 45385; 88305; J2704

== ENCOUNTER → 2022-04-07 | Outpatient (CLI) | payer MEDICARE, OTHER ==
--- NOTE | 2022-04-07 09:17 | CT ---
EXAMINATION TYPE: CT brain wo con CT DLP: 1171 mGycm, Automated exposure control for dose reduction was used. DATE OF EXAM: 04/07/2022 8:17 AM COMPARISON: None. CLINICAL INDICATION:Male, 71 years old with history of R51.9 headache, Headaches, dizziness and memor y issues TECHNIQUE: Brain: Axial CT images of the brain were obtained with coronal and sagittal reformats created and rev iewed. Contrast used: None. Oral contrast used: None. FINDINGS: Brain: Extra-axial spaces: No abnormal extra-axial fluid collections. Ventricular system: Dilatation in proportion to cerebral atrophy. Cerebral parenchyma: Hypodense areas within the bilateral insular cortex white matter. Cerebral atrop hy. No acute intraparenchymal hemorrhage or mass effect. The mcmullen-white junction is well differentia ravi. Scattered hypoattenuating areas are seen within the white matter. Cerebellum: Cerebellar atrophy Mass effect: No evidence of midline shift. Intracranial vasculature: Atherosclerotic calcifications of the intracranial vessels. Soft tissues: Normal. Calvarium/osseous structures: No depressed skull fracture. Paranasal sinuses and mastoid air cells: Clear Visualized orbits: Bilateral aphakia IMPRESSION: 1. No acute intracranial process. 2. Nonspecific hypodense areas within these insular cortex white matter bilaterally.
== END | disposition home or self-care (01) ==
LOC: RADCTMAIN 07:48
PROVIDERS: ATTEND Family Medicine
DX: R90.82 White matter disease, unspecified (principal); R51.9 Headache, unspecified; R42 Dizziness and giddiness; G50.1 Atypical facial pain
CPT/HCPCS: 70450

== ENCOUNTER → 2023-01-11 | Outpatient (CLI) | payer MEDICARE, OTHER ==
[2023-01-11 16:13] LABS: ALT 23 U/L (10-49); AST 22 U/L (14-35); Albumin 4.4 d/dL (3.8-4.9); Albumin/Globulin Ratio 1.76 Ratio (1.60-3.17); Alkaline Phosphatase 66 U/L (41-126); BUN/Creat Ratio 23.33 Ratio (12.00-20.00); Calcium 9.6 mg/dL (8.7-10.3); Carbon Dioxide 21.7 mmol/L (21.6-31.8); Chloride 109 mmol/L (96-109); Chol/HDL Ratio 2.54 Ratio; Globulin 2.5 d/dL (1.6-3.3); Glucose 114 mg/dL (70-110); LDL Cholesterol,Calculated 61.5 mg/dL (0.0-131.0); Sodium 142 mmol/L (135-145); Total Bilirubin 0.4 mg/dL (0.3-1.2); Total Protein 6.9 d/dL (6.2-8.2); VLDL Calculation 17.98 mg/dL (5.00-40.00)
== END | disposition home or self-care (01) ==
LOC: LABWHC1 08:41
PROVIDERS: ATTEND Internal Medicine Interventional Cardiology
DX: I10 Essential (primary) hypertension (principal); E78.2 Mixed hyperlipidemia
CPT/HCPCS: 36415; 80053; 80061

== ENCOUNTER 2023-08-17 05:34 | Day surgery (SDC) | payer MEDICARE, OTHER ==
[2023-08-14 15:23] VITALS: BMI 39.0
[2023-08-17] MEDS ORDERED: ALPRAZolam 0.5 MG TAB PO PRN (05:51)
[2023-08-17] MEDS ORDERED: NITROGLYCERIN SL TABS 0.4 MG TAB SUBLINGUAL PRN (05:51)
[2023-08-17] MEDS ORDERED: HEPARIN SODIUM,PORCINE 10,000 UNIT in SODIUM CHLORIDE 0.9% 1,000 ML IRRIGATION PRN (05:51)
[2023-08-17] MEDS ORDERED: ALPRAZolam 0.25 MG TAB PO PRN (05:51)
[2023-08-17] MEDS ORDERED: HEPARIN SODIUM,PORCINE (1 ML) 2,500 UNIT in SODIUM CHLORIDE 0.9% 250 ML IRRIGATION PRN (05:51)
[2023-08-17] MEDS ORDERED: SODIUM CHLORIDE 0.9% 1,000 ML in EMPTY BAG 1 BAG IV SCH (05:51)
[2023-08-17] MEDS: SODIUM CHLORIDE 0.9% 1,000 ML IV ONE (06:11)
[2023-08-17 06:44] LABS: Glucose,Whole Blood 107 mg/dL (70-110)
[2023-08-17 06:59] LABS: Basophils # (A) 0.1 k/uL (0-0.2); Basophils % (A) 1 %; Eosinophils # (A) 0.2 k/uL (0-0.7); Eosinophils % (A) 4 %; HGB 13.6 gm/dL (13.0-17.5); Lymphocytes # (A) 1.6 k/uL (1.0-4.8); Lymphocytes % (A) 27 %; MCH 32.7 pg (25.0-35.0); MCV 99.1 fL (80.0-100.0); Mean Platelet Volume 8.6; Monocytes # (A) 0.3 k/uL (0-1.0); Monocytes % (A) 6 %; Neutrophils # (A) 3.6 k/uL (1.3-7.7); Neutrophils % (A) 61 %; Platelet Count 183 k/uL (150-450); RBC 4.14 m/uL (4.30-5.90); RDW 12.3 % (11.5-15.5); WBC 5.9 k/uL (3.8-10.6)
[2023-08-17] MEDS ORDERED: ASPIRIN 325 MG TAB PO ONE (07:00)
[2023-08-17] MEDS ORDERED: LIDOCAINE 1% INJ 10MG/ML (20 ML MDV) ONE (07:20)
[2023-08-17] MEDS ORDERED: VERAPAMIL 2.5 MG/ML 2 ML AMP ONE (07:20)
[2023-08-17 07:27] LABS: African American GFR (CKD) >90 (>60 ml/min/1.73 sqM); Anion Gap 9 mmol/L; Blood Urea Nitrogen 24 mg/dL (9-20); Calcium 9.1 mg/dL (8.4-10.2); Carbon Dioxide 18 mmol/L (22-30); Chloride 112 mmol/L (98-107); Glucose 108 mg/dL (74-99); Non-African American GFR(CKD) >90 (>60 ml/min/1.73 sqM); Potassium 4.4 mmol/L (3.5-5.1); Sodium 139 mmol/L (137-145)
[2023-08-17 07:30] VITALS: PULSE 64; RESP 16; TEMP 98.2
[2023-08-17] MEDS ORDERED: fentaNYL (PF) 50 MCG/ML 2 ML AMP ONE (07:30)
[2023-08-17] MEDS ORDERED: HEPARIN SODIUM 1,000 UN/ML (10ML VL) ONE (07:30)
[2023-08-17] MEDS: LIDOCAINE 1% INJ 10MG/ML (5 ML VIAL-PF) SQ ONE (07:32)
[2023-08-17] MEDS: fentaNYL (PF) 50 MCG/ML 2 ML AMP IVP ONE (07:32)
[2023-08-17] MEDS: VERAPAMIL SYRINGE (5 MG/10 ML) INTRAARTER ONE (07:34)
[2023-08-17] MEDS: HEPARIN SODIUM 1,000 UN/ML (10ML VL) IV ONE (07:39)
[2023-08-17] MEDS: IOPAMIDOL-370 100ML BTL INJ ONE (07:51)
[2023-08-17] MEDS ORDERED: RX INFO: IV CONTRAST WAS GIVEN 1 EACH MISC MISCELLANE PRN (08:00)
[2023-08-17] MEDS ORDERED: SODIUM CHLORIDE 0.9% 1,000 ML IV SCH (08:00)
--- NOTE | 2023-08-17 08:06 | P.CARDCATH ---
Date of Procedure: 08/17/23 Description of Procedure: Cardiac Catheterization: The patient is a 72-year-old male with a known history of hypertension, hyperlipidemia, diabetes and history of CAD who has been complaining of episodes of chest discomfort and had an abnormal MPI. Recommendations were made regarding cardiac catheterization, the risks and the complications were discussed with the patient who is in full understanding and agreement. Procedure Description: Patient was brought to specialist employee labor relations in fasting semi-sedated state after receiving Fentanyl and Benadryl achieiving moderate conscious sedated state. Using Xylocaine Anesthesia and modified Seldinger technique, a 6-Czech sheath was introduced in the right radial artery . Subsequently, selective coronary angiography was performed using a 5-Czech 3.5 bend Tracie catheter. Multiple views of the coronary artery including hemiaxial views were obtained. The 5 Czech pigtail catheter was used to cross the aortic valve and LVEDP was calculated. Following that, catheter and sheath were removed. Hemostasis was obtained with deployment of vascular band . There was no immediate complication. Patient was returned to room in stable condition. Of note, the patient received a total of 5000 units of intravenous heparin as well as intra-arterial verapamil. Findings: Left main: This is a short size vessel, trifurcating into LAD, left circumflex and ramus intermedius, left main has no obstructive disease. LAD: This is a large size vessel, reaching to the apex with a wraparound apex segment. It gives rise to a large diagonal branch in the midsegment. The mid LAD has a 20 to 30% plaque with suggestion of myocardial bridging and no evidence of high-grade stenosis Left circumflex: This is a codominant vessel, bifurcating distally to PDA and PLV, the left circumflex and its branches have no obstructive disease RCA: This is a small codominant vessel, giving rise to a large conus branch proximally the right coronary artery gives rise to a small PDA that has no evidence of high-grade stenosis Ramus intermedius: This is a large size vessel that has no evidence of high- grade stenosis Left Ventriculogram: Not performed Hemodynamics: There was no gradient across the aortic valve, LVEDP was 8-12 mmHg Conclusion: 1. Mild disease in the mid LAD with possible myocardial bridging 2. No obstructive disease in the left circumflex and the RCA 3. Codominant vessel 4. Normal LVEDP Recommendations: I have recommended to continue medical therapy with the aggressive coronary risks modification that has been initiated.. The findings and the recommendations were discussed with the patient and he is in full understanding and agreement. Duration of sedation is 20 minutes.
[2023-08-17 12:10] VITALS: BP 144/70
[2023-08-17] MEDS ORDERED: atenoloL 25 MG TAB PO SCH (21:00)
[2023-08-18] MEDS ORDERED: TAMSULOSIN 0.4 MG CAP.ER.24H PO SCH (09:00)
[2023-08-18] MEDS ORDERED: ATORVASTATIN 40 MG TAB PO SCH (09:00)
[2023-08-18] MEDS ORDERED: ASPIRIN 81 MG PO SCH (09:00)
[2023-08-18] MEDS ORDERED: lisinopriL 5 MG TAB PO SCH (09:00)
== END 2023-08-17 11:35 | disposition home or self-care (01) ==
LOC: CATHCVL 05:34
PROVIDERS: ATTEND Internal Medicine Interventional Cardiology
DX: I25.10 Atherosclerotic heart disease of native coronary artery without angina pectoris (principal); I10 Essential (primary) hypertension; E78.2 Mixed hyperlipidemia; E11.9 Type 2 diabetes mellitus without complications; Z82.49 Family history of ischemic heart disease and other diseases of the circulatory system; Z79.84 Long term (current) use of oral hypoglycemic drugs; Z79.899 Other long term (current) drug therapy
CPT/HCPCS: 93458; 80048; 85025; C1769 ×2; C1894; J2001; J3010; J1644; Q9967

== ENCOUNTER → 2023-08-25 | Outpatient (CLI) | payer MEDICARE, OTHER ==
--- NOTE | 2023-08-25 16:46 | MR ---
EXAMINATION TYPE: MR brain wo/w con DATE OF EXAM: 08/25/2023 COMPARISON: CT 04/07/2022 HISTORY: 72-year-old male R20.2, paresthesias of skin, Dizziness, right sided numbness. TECHNIQUE: Multiplanar, multisequence images of the brain and brainstem were acquired before and aft er administration of 12.5 mL IV Gadavist. Diffusion weighted imaging is performed. FINDINGS: No evidence for acute infarction, hemorrhage, mass, mass effect, midline shift, herniation, effacemen t of basal cisterns, or extra-axial fluid collection. There is mild to moderate volume loss overlying the bilateral cerebral convexities. No hydrocephalus. Major intracranial flow voids are intact. However, on postcontrast images, unable to exclude narrowin gs at the levels of bilateral carotid terminus. This can be further evaluated with thin cut CT angiog peewee. T2/FLAIR weighted sequences show moderate scattered bright white matter change in the subcortical, de ep, and periventricular regions of both cerebral hemispheres. Midline structures demonstrate normal morphology. The craniocervical junction is normal. Post contrast images demonstrate no evidence of pathologic enhancement. Dural venous sinuses are pat ent. Moderate mucosal thickening ethmoid air cells. Scattered fluid within the bilateral mastoid air cells . Globes are intact. IMPRESSION: 1. Mild to moderate cerebral atrophy and moderate burden of chronic small vessel ischemic disease. No acute intracranial abnormality or enhancing intracranial lesion seen. 2. Possible stenoses at the bilateral carotid terminus. This can be better evaluated with thin cut CT angiography [place] [facility] [place]. 3. Moderate chronic ethmoid sinus disease. 4. Scattered fluid within the bilateral mastoid air cells. Correlate for any mastoid pain to exclude mastoiditis.
== END | disposition home or self-care (01) ==
LOC: RADMRIMAIN 12:12
PROVIDERS: ATTEND Family Medicine
DX: R20.2 Paresthesia of skin (principal); I67.82 Cerebral ischemia; J32.2 Chronic ethmoidal sinusitis
CPT/HCPCS: 70553; A9585

== ENCOUNTER → 2023-09-27 | Outpatient (CLI) | payer MEDICARE, OTHER ==
[2023-09-27 07:02] LABS: African American GFR (CKD) >90 (>60 ml/min/1.73 sqM); Blood Urea Nitrogen 20 mg/dL (9-20); Non-African American GFR(CKD) 82 (>60 ml/min/1.73 sqM)
--- NOTE | 2023-09-27 13:58 | CT ---
EXAMINATION TYPE: CT angio head neck CT DLP: 1609 mGycm, Automated exposure control for dose reduction was used. DATE OF EXAM: 09/27/2023 8:25 AM COMPARISON: 04/07/2022. CLINICAL INDICATION:Male, 72 years old with history of I65.29 OCCLUSION AND STENOSIS OF UNSPECIFIED C AROT, stenosis of carotid TECHNIQUE: Axially acquired helical CT angiogram of the head and neck was obtained with contrast. Axi al images are supplemented with 3D reconstructions and MIP images which were post-processed at an in dependent workstation. NASCET criteria used. Contrast used:65 mL of Isovue 370 with IV Contrast, Oral contrast used: None. FINDINGS: CTA HEAD: No evidence of acute intracranial hemorrhage, mass effect, or midline shift. The ventricles, sulci, a nd cisterns are unremarkable. The visualized portions of the internal carotid arteries, middle cerebral arteries, anterior cerebral arteries, and posterior cerebral arteries are patent. Atherosclerotic sclerosis of the intracranial carotid arteries. The basilar and vertebral arteries are patent. CTA NECK: Right Carotid System: The common carotid and external carotid arteries are patent. There is less than 25% stenosis at the c arotid bifurcation secondary to calcified/noncalcified plaque. The rest of the internal carotid arter y is patent. Left Carotid System: The common carotid and external carotid arteries are patent. There is less than 25% stenosis at the c arotid bifurcation secondary to calcified/noncalcified plaque. The rest of the internal carotid arter y is patent. Vertebral arteries are patent without evidence hemodynamically significant stenosis. There is a three-vessel aortic arch. The origins of the great vessels are patent. No evidence of hemo dynamically significant stenosis. Calcifications are seen within the palatine tonsils bilaterally. De generation changes throughout the spine. IMPRESSION: 1. No evidence of dissection of the cervical internal carotid arteries or vertebral arteries or any e vidence of significant stenosis at the carotid bifurcations. 2. No evidence of intracranial high-grade stenosis or intracranial aneurysm.
== END | disposition home or self-care (01) ==
LOC: RADCTMAIN 06:22
PROVIDERS: ATTEND Family Medicine
DX: I65.29 Occlusion and stenosis of unspecified carotid artery (principal)
CPT/HCPCS: 82565; 84520; 70496; 70498; 36415; Q9967